=== PATIENT | female | born 1955 | race African-American/Black ===

== ENCOUNTER 2017-09-21 18:36 | Emergency (ER) | payer OTHER ==
--- NOTE | 2017-09-21 20:13 | RAD ---
RIGHT FOOT THREE VIEWS: History: Right foot injury. FINDINGS: Lisfranc joint alignment is anatomic. Plantar arch is maintained. Hallux valgus with bunion deformity is evident. No acute fracture, dislocation, or aggressive osseous erosions. Scattered osteoarthritic changes are present. Soft tissue swelling is apparent about the forefoot. IMPRESSION: 1. Soft tissue swelling. 2. Mild osteoarthritic changes. POS: [facility]
[2017-09-21] MEDS ORDERED: Ketorolac Tromethamine 30 MG/ML VIAL ONE (21:21)
== END 2017-09-21 21:35 | disposition home or self-care (01) ==
LOC: ERS 18:36
DX: S90.31XA Contusion of right foot, initial encounter (principal); I25.10 Atherosclerotic heart disease of native coronary artery without angina pectoris; I25.2 Old myocardial infarction; E11.9 Type 2 diabetes mellitus without complications; I10 Essential (primary) hypertension; G43.909 Migraine, unspecified, not intractable, without status migrainosus; F17.210 Nicotine dependence, cigarettes, uncomplicated; Z79.4 Long term (current) use of insulin; W20.8XXA Other cause of strike by thrown, projected or falling object, initial encounter
CPT/HCPCS: 96372; J1885

== ENCOUNTER 2018-03-21 09:12 | Observation (INO) | payer OTHER ==
[2018-03-21] MEDS ORDERED: Nitroglycerin 0.4 MG TAB (25 Tab Bottle) ONE (09:48)
[2018-03-21] MEDS ORDERED: Nitroglycerin 2% Ointment 1 INCH/1 GM Packet ONE (09:55)
[2018-03-21 10:14] LABS: #Basophils 0.1 thou/uL (0.0-0.2); #Eosinphils 0.3 thou/uL (0.0-0.7); #Lymphocytes 3.7 thou/uL (1.20-3.40); #Monocytes 0.4 thou/uL (0.11-0.59); #Neutrophils 4.3 thou/uL (1.40-6.50); %Basophils 1.5 % (0.0-1.0); %Eosinophils 3.4 % (0.0-10.0); %Lymphocytes 42.2 % (21.0-51.0); %Neutrophils 48.9 % (42.0-75.0); Mean Corpuscular HGB CONC 34.2 g/dL (32.0-36.0); Mean Corpuscular Hemoglobin 30.5 pg (27.0-31.0); Mean Corpuscular Volume 89.2 fL (78.0-98.0); Mean Platelet Volume 7.9 fL (7.4-10.4); Platelet Count 242 thou/uL (130-400); RBC Distribution Width 14.6 % (11.5-14.5); Red Blood Cell (RBC) Count 4.58 mill/uL (4.20-5.40); White Blood Cell (WBC) Count 8.7 thou/uL (4.8-10.8)
--- NOTE | 2018-03-21 10:14 | RAD ---
PORTABLE CHEST: HISTORY: Chest pain. FINDINGS: Comparison exam from 2014. Lung friedman are clear. Vascular markings normal. Heart and mediastinum unremarkable. IMPRESSION: Unremarkable chest. POS: [facility]
[2018-03-21 10:40] LABS: ALT (SGPT) 13 U/L (8-55); AST (SGOT) 16 U/L (5-34); Albumin 3.8 g/dL (3.4-4.8); Alkaline Phosphatase 132 U/L (40-150); Anion Gap 10 mmol/L (10-20); BUN (Urea Nitrogen) 8 mg/dL (9.8-20.1); Bilirubin, Total 0.4 mg/dL (0.2-1.2); Calc. Creatinine Clearance 0 mL/min (70-130); Calcium 9.2 mg/dL (7.8-10.44); Carbon Dioxide 27 mmol/L (23-31); Chloride 107 mmol/L (98-107); Estimated GFR-MDRD Greater than 90; Globulin 3.3 g/dL (2.4-3.5); Glucose 68 mg/dL (80-115); Potassium 3.2 mmol/L (3.5-5.1); Protein, Total 7.1 g/dL (6.0-8.3); Sodium 141 mmol/L (136-145)
[2018-03-21 10:44] LABS: CKMB 3.1 ng/mL (0-6.6); Troponin I Less than 0.010 ng/mL (< 0.028)
[2018-03-21] MEDS ORDERED: Potassium Chloride 20 MEQ TAB ONE ×2 (11:16→11:17)
[2018-03-21 13:32] LABS: Troponin I Less than 0.010 ng/mL (< 0.028)
[2018-03-21 13:35] VITALS: BMI 22.4
[2018-03-21] MEDS ORDERED: Ondansetron ODT 4 MG TAB SL PRN (13:42)
[2018-03-21] MEDS ORDERED: Ondansetron HCl/PF 4 MG/2 ML Vial IVP PRN (13:42)
[2018-03-21] MEDS ORDERED: Acetaminophen 325 MG TAB PO PRN (13:42)
[2018-03-21] MEDS ORDERED: Dextrose 5% in Water 1,000 ML IV PRN (14:33)
[2018-03-21] MEDS ORDERED: Dextrose 50% Abboject 50 ML SYRINGE SLOW IVP PRN (14:33)
[2018-03-21] MEDS ORDERED: HumaLOG 300 UNITS/3 ML VIAL SC PRN (14:33)
[2018-03-21] MEDS: metFORMIN 500 MG TAB PO SCH (16:55)
[2018-03-21 17:42] LABS: Troponin I Less than 0.010 ng/mL (< 0.028)
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
[2018-03-21 19:50] LABS: Troponin I Less than 0.010 ng/mL (< 0.028)
[2018-03-21] MEDS ORDERED: Pregabalin 50 MG CAP PO SCH (21:00)
[2018-03-22 05:06] LABS: Anion Gap 11 mmol/L (10-20); BUN (Urea Nitrogen) 8 mg/dL (9.8-20.1); Calc. Creatinine Clearance 92 mL/min (70-130); Calcium 9.1 mg/dL (7.8-10.44); Carbon Dioxide 25 mmol/L (23-31); Chloride 108 mmol/L (98-107); Estimated GFR-MDRD Greater than 90; Glucose 231 mg/dL (80-115); Potassium 3.7 mmol/L (3.5-5.1); Sodium 140 mmol/L (136-145)
[2018-03-22] MEDS ORDERED: Regadenoson 0.4 MG/5 ML SYRINGE ONE (08:39)
[2018-03-22] MEDS ORDERED: Iopamidol 370 76% 100 ML VIAL ONE (08:43)
[2018-03-22] MEDS ORDERED: Aspirin 325 MG TAB PO SCH (09:00)
[2018-03-22] MEDS: Acetaminophen 325 MG TAB PO PRN ×2 (09:25→17:24)
[2018-03-22] MEDS: metFORMIN 500 MG TAB PO SCH ×2 (13:52→16:27)
[2018-03-22] MEDS ORDERED: Heparin 1000 UNIT/NS 500ML(OR) 1,000 ML ONE (14:27)
[2018-03-22] MEDS ORDERED: Sodium Chloride 0.9% 1,000 ML IV SCH ×2 (14:30→18:15)
[2018-03-22] MEDS ORDERED: Communication Order-Pharmacy FS SCH (14:30)
--- NOTE | 2018-03-22 14:31 | NM ---
MYOCARDIAL PERFUSION STUDY: Date: 03/22/18 HISTORY: Chest pain. History of coronary artery disease. History of prior coronary artery stent placement. RADIOPHARMACEUTICALS: 32.8 mCi technetium-99m sestamibi, IV at stress. 27 mCi technetium-99m sestamibi, IV at rest. MEDICATIONS: 0.4 mg of Lexiscan, IV. COMPARISON: 12/16/13. FINDINGS: There is a small area of mildly diminished uptake of radiotracer seen involving the distal anterolate ral right ventricular wall on both the resting and stress acquisitions. No reversible defect is seen to suggest ischemia. Gated images demonstrate normal ventricular wall motion and wall thickening. The calculated left ventricular ejection fraction is 77%. LVEF on prior exam of 2013 was 74%. Transient ischemic dilatation ratio is 1.28, which is elevated with normal being 1.22 or less. IMPRESSION: 1. Normal myocardial perfusion study without evidence of a reversible defect seen to suggest ischemi a. There is a small mildly fixed defect within the anteroseptal distal left ventricular wall with nor mal wall thickening and motion, and this is probably attributable to soft tissue attenuation. 2. Normal LV function with normal LVEF of 77%. 3. Elevated transient ischemic dilatation ratio of 1.28. POS: [facility]
--- NOTE | 2018-03-22 14:51 | CON ---
DATE OF CONSULTATION: 03/22/2018 REASON FOR CONSULTATION: Chest pain and history of coronary artery disease. HISTORY OF PRESENT ILLNESS: Ms. Lou is a 62-year-old woman, who states she has seeing Dr. Wilson madrid in the past. She underwent stent placement several years ago. She recently presented with ches t pain, lasted 15-20 minutes. Her initial troponin was negative. Her initial EKG did suggest biphas ic T waves. Her stress test showed an increase in TID of 1.28, although her LV volumes were small. Cardiac risk factors, diabetes mellitus, hypertension, hyperlipidemia, tobacco abuse. PAST MEDICAL HISTORY: As above including fibromyalgia and osteoarthritis. PAST SURGICAL HISTORY: Hysterectomy and hernia repair. SOCIAL HISTORY: As above. ALLERGIES: None. HOME MEDICATIONS: Include Lyrica, aspirin, metformin. REVIEW OF SYSTEMS: Ten-point review of systems reviewed and as above, otherwise negative. PHYSICAL EXAMINATION: VITAL SIGNS: Blood pressure is 167/81, pulse 62, temperature 98.3. GENERAL: Patient is a pleasant female, who is in no acute distress. The patient appears her stated age. NEUROLOGIC: The patient is alert and oriented times 3 with no focal neurologic deficits. HEENT: Sclerae without icterus. Mouth has moist mucous membranes with normal pallor. NECK: No JVD. Carotid upstroke brisk. No bruits bilaterally. LUNGS: Clear to auscultation with unlabored respirations. BACK: No scoliosis or kyphosis. CARDIAC: Regular rate and rhythm with normal S1 and S2. No S3 or S4 noted. No significant rubs, mu rmurs, thrills, or gallops noted throughout the precordium. PMI is not displaced. There is no nishi ternal heave. ABDOMEN: Soft, nontender, nondistended. No peritoneal signs present. No hepatosplenomegaly. No ab normal striae. EXTREMITIES: 2+ femoral and 2+ dorsalis pedis pulses. No cyanosis, clubbing, or edema. SKIN: No gross abnormalities. PERTINENT LABORATORY DATA: CK and troponin negative. Creatinine 0.66. EKG: Normal sinus rhythm with biphasic T-waves present. Stress rest myocardial perfusion study with LVEF 74% with small fixed defect in the anterolateral reg ion and elevated TID IMPRESSION: 1. Chest pain. 2. Tobacco abuse. 3. Diabetes mellitus. RECOMMENDATIONS: Ms. Lou' symptoms certainly suggest unstable angina. Her stress study did sugge st a small scar with no ischemia present. I am more concerned about her biphasic T waves and acute o nset symptoms. She also has multiple risk factors for underlying coronary artery disease. Discussed medical therapy versus angiography. I did recommend angiography given her EKG changes that are felt to be new from 2013. Discussed coronary angiography in full detail with Ms. Lou. The risks incl uded but not limited to the following: , stroke, IL, need for emergency surgery, loss of limb, bleeding, and infection, as well as a reaction to the dye causing kidney failure and needing long-ter m dialysis. I also discussed the risks of PCI to include all of the above including coronary dissect ion and perforation in addition to acute stent thrombosis and restenosis. All questions were answere d. Given the above, patient agreed to proceed with above procedure. We will proceed with a drug-coa sheri stent placement if needed.
[2018-03-22] MEDS ORDERED: Midazolam HCl 2 mg/2 ml Vial ONE (15:32)
[2018-03-22] MEDS ORDERED: Fentanyl 100 MCG/2 ML VIAL ONE (15:32)
[2018-03-22] MEDS ORDERED: Nitroglycerin 100MG/250ML BOT 250 ML ONE (15:38)
[2018-03-22] MEDS ORDERED: hydrALAZINE 20 MG/ML VIAL ONE (15:38)
[2018-03-22 16:15] VITALS: BP 162/80; TEMP 98.7
[2018-03-22] MEDS ORDERED: traMADol HCl 50 MG TAB PO PRN (18:10)
[2018-03-22] MEDS ORDERED: Nitroglycerin 0.4 MG TAB (25 Tab Bottle) SL PRN (18:10)
[2018-03-22] MEDS ORDERED: Acetaminophen/Codeine 30-300mg Tablet PO PRN ×2 (18:10)
[2018-03-22] MEDS ORDERED: Sodium Chloride 0.9% 200 ML IV SCH (18:19)
--- NOTE | 2018-03-23 14:09 | DIS ---
DATE OF ADMISSION: 03/21/2018 DATE OF DISCHARGE: 03/22/2018 DISCHARGE DIAGNOSES: 1. Chest pain. 2. Coronary artery disease. 3. Diabetes mellitus. 4. Hypertension. 5. History of fibromyalgia syndrome. 6. Tobacco abuse. HISTORY: The patient is a 62-year-old female who has a history of coronary disease with prior stents , who presented to the Emergency Department with some exertional chest pain while at work. She initi ally had negative enzymes and a nondiagnostic EKG. HOSPITAL COURSE: The patient was placed in the hospital on telemetry, where she received serial card iac isoenzymes and EKGs. She underwent a stress test, which showed no reversible ischemia, but poten tially scarring. She was seen in consultation by Cardiology who was concerned about the dynamic natu re of her T waves and the abrupt onset of her symptoms and therefore, the patient was taken for heart catheterization. The patient was found to have a patent stent in the RCA and otherwise a small vess el disease and medical management was recommended. PHYSICAL EXAMINATION: On the day of discharge, VITAL SIGNS: Temperature 98.7, pulse 67, respirations 18, O2 saturation 98% on room air, BP ranged f rom 135/75 to 162/80. GENERAL: The patient was awake, alert, in no distress. HEART: Regular rate and rhythm without murmurs. LUNGS: Clear bilaterally. ABDOMEN: Soft, nontender, nondistended. EXTREMITIES: Warm and dry. DISPOSITION: The patient is discharged to home. She will be on atorvastatin 40 mg every day. She w ill continue with metformin, pregabalin, aspirin. Her activity level is as tolerated. She will [place] in on a heart healthy diet. She should follow up with Dr. Uriah Trinidad and Dr. Arciniega. The patie nt should return to the emergency department should she have any problems prior to her followup.
--- NOTE | 2018-03-24 13:46 | EKG ---
Test Reason : CHEST PAIN Blood Pressure : / mmHG Vent. Rate : 070 BPM Atrial Rate : 070 BPM P-R Int : 124 ms QRS Dur : 100 ms QT Int : 410 ms P-R-T Axes : 067 057 087 degrees QTc Int : 442 ms Normal sinus rhythm Minimal voltage criteria for LVH, may be normal variant Nonspecific T wave abnormality Abnormal ECG Confirmed by REGAN MORGAN, MELINA ([id number]), editorial intern GABBY ROBLES ([id number]) on 03/24/2018 1:45:32 PM Referred By: Confirmed By:MELINA SPEARS MD
--- NOTE | 2018-03-25 12:40 | STRESS ---
Acquisition Time: 2018-03-22 11:16:17 Total Exercise Time: 00:01:00 Test Indications: CHEST PAIN Medications: Protocol: LEXISCAN Max HR: 121 BPM 76% of Pred: 159 BPM Max BP: 168/080 mmHG Max Work Load: 1.0 METS RESTING ECG: NORMAL SINUS RHYTHM AT 60 BPM WITH LEFT VENTRICULAR HYPERTROPHY SYMPTOMS: NONE NORMAL BP RESPONSE ECTOPY: RARE PAC ECG STRESS: NO SIGNIFICANT CHANGES INTERPRETATION: NEGATIVE ECG/AWAIT NUCLEAR IMAGES FOR DEFINITIVE DIAGNOSIS Confirmed by AMY MOY ELLEN ([id number]) on 03/25/2018 12:40:07 PM Referred By: MD Clint MCKNIGHT Confirmed By:ABBY MOY PA-C
== END 2018-03-22 18:58 | disposition home or self-care (01) ==
LOC: ERS 09:12 → 2SW 13:19
PROVIDERS: ADMIT Internal Medicine; ATTEND Internal Medicine
PROC: 4A023N7 Measurement of Cardiac Sampling and Pressure, Left Heart, Percutaneous Approach (ICD-10-PCS; principal; 2018-03-22)
PROC: B2111ZZ Fluoroscopy of Multiple Coronary Arteries using Low Osmolar Contrast (ICD-10-PCS; 2018-03-22)
DX: R07.89 Other chest pain (principal); I25.10 Atherosclerotic heart disease of native coronary artery without angina pectoris; I10 Essential (primary) hypertension; E11.9 Type 2 diabetes mellitus without complications; I25.2 Old myocardial infarction; F17.210 Nicotine dependence, cigarettes, uncomplicated; E78.5 Hyperlipidemia, unspecified; M79.7 Fibromyalgia; M19.90 Unspecified osteoarthritis, unspecified site; Z86.73 Personal history of transient ischemic attack (TIA), and cerebral infarction without residual deficits; Z79.82 Long term (current) use of aspirin; Z79.84 Long term (current) use of oral hypoglycemic drugs; Z79.899 Other long term (current) drug therapy; Z95.5 Presence of coronary angioplasty implant and graft
CPT/HCPCS: 36415; 36416; 71045; 76942; 78452; 80048; 80053; 82553; 84484; 85025; 93005; 93017; 93458; 99152; A4216; A9500; C1760; C1769; G0378; J0360; J1644; J2250; J2785; J3010; J7050

== ENCOUNTER 2018-11-04 20:33 | Emergency (ER) | payer OTHER, SELFPAY ==
[2018-11-04 22:42] LABS: #Basophils 0.2 thou/uL (0.0-0.2); #Eosinphils 0.3 thou/uL (0.0-0.7); #Lymphocytes 4.8 thou/uL (1.20-3.40); #Monocytes 0.6 thou/uL (0.11-0.59); #Neutrophils 5.5 thou/uL (1.40-6.50); %Basophils 1.6 % (0.0-1.0); %Lymphocytes 42.1 % (21.0-51.0); %Monocytes 5.1 % (0.0-10.0); %Neutrophils 48.1 % (42.0-75.0); Hemoglobin 15.3 g/dL (12.0-16.0); Mean Corpuscular HGB CONC 33.2 g/dL (32.0-36.0); Mean Corpuscular Hemoglobin 29.3 pg (27.0-31.0); Mean Corpuscular Volume 88.2 fL (78.0-98.0); Mean Platelet Volume 8.1 fL (7.4-10.4); Platelet Count 296 thou/uL (130-400); RBC Distribution Width 13.9 % (11.5-14.5); Red Blood Cell (RBC) Count 5.23 mill/uL (4.20-5.40); White Blood Cell (WBC) Count 11.3 thou/uL (4.8-10.8)
[2018-11-04 22:58] LABS: ALT (SGPT) Less than 7 U/L (8-55); AST (SGOT) 10 U/L (5-34); Alkaline Phosphatase 140 U/L (40-150); Anion Gap 14 mmol/L (10-20); BUN (Urea Nitrogen) 9 mg/dL (9.8-20.1); Bilirubin, Total 0.2 mg/dL (0.2-1.2); Calc. Creatinine Clearance 0 mL/min (70-130); Calcium 9.8 mg/dL (7.8-10.44); Carbon Dioxide 25 mmol/L (23-31); Chloride 102 mmol/L (98-107); Estimated GFR-MDRD Greater than 90; Globulin 3.8 g/dL (2.4-3.5); Glucose 148 mg/dL (80-115); Potassium 3.7 mmol/L (3.5-5.1); Protein, Total 7.8 g/dL (6.0-8.3); Sodium 137 mmol/L (136-145)
== END 2018-11-04 23:19 | disposition home or self-care (01) ==
LOC: ERS 20:33
DX: L73.2 Hidradenitis suppurativa (principal); E11.40 Type 2 diabetes mellitus with diabetic neuropathy, unspecified; E11.65 Type 2 diabetes mellitus with hyperglycemia; I25.10 Atherosclerotic heart disease of native coronary artery without angina pectoris; I25.2 Old myocardial infarction; I10 Essential (primary) hypertension; M79.7 Fibromyalgia; F32.9 Major depressive disorder, single episode, unspecified; F41.9 Anxiety disorder, unspecified; F17.210 Nicotine dependence, cigarettes, uncomplicated; Z79.82 Long term (current) use of aspirin; Z79.84 Long term (current) use of oral hypoglycemic drugs; Z79.899 Other long term (current) drug therapy
CPT/HCPCS: 36415; 36416; 80053; 85025; 87804; 99283

== ENCOUNTER 2019-03-26 01:47 | Inpatient (IN) | payer OTHER ==
[2019-03-26] MEDS ORDERED: Amiodarone 150 MG/3 ML VIAL ONE (01:57)
[2019-03-26 02:39] LABS: PTT 31.6 SEC (22.9-36.1); Prothrombin Time 12.8 SEC (12.0-14.7)
[2019-03-26 02:45] LABS: Hemoglobin 15.6 g/dL (12.0-16.0); Mean Corpuscular HGB CONC 34.4 g/dL (32.0-36.0); Mean Corpuscular Hemoglobin 32.2 pg (27.0-31.0); Mean Corpuscular Volume 93.6 fL (78.0-98.0); Mean Platelet Volume 7.8 fL (7.4-10.4); Platelet Count 324 thou/uL (130-400); RBC Distribution Width 14.7 % (11.5-14.5); Red Blood Cell (RBC) Count 4.85 mill/uL (4.20-5.40); White Blood Cell (WBC) Count 11.2 thou/uL (4.8-10.8)
[2019-03-26 02:47] LABS: ALT (SGPT) Less than 7 U/L (8-55); AST (SGOT) 12 U/L (5-34); Albumin 3.8 g/dL (3.4-4.8); Alkaline Phosphatase 107 U/L (40-150); Anion Gap 17 mmol/L (10-20); BUN (Urea Nitrogen) 8 mg/dL (9.8-20.1); Bilirubin, Total 0.3 mg/dL (0.2-1.2); Calc. Creatinine Clearance 0 mL/min (70-130); Calcium 10.1 mg/dL (7.8-10.44); Carbon Dioxide 25 mmol/L (23-31); Chloride 102 mmol/L (98-107); Estimated GFR-MDRD Greater than 90; Globulin 3.3 g/dL (2.4-3.5); Glucose 220 mg/dL (80-115); Magnesium 1.3 mg/dL (1.6-2.6); Potassium 3.3 mmol/L (3.5-5.1); Protein, Total 7.1 g/dL (6.0-8.3); Sodium 141 mmol/L (136-145)
[2019-03-26 03:02] LABS: Eosinophils 5 % (0-10); Lymphocytes 28 % (21-51); MDiff Complete? YES; Monocytes 4 % (0-10); Neutrophil 60 % (42-75); Reactive Lymphocytes 3 % (0-10)
[2019-03-26] MEDS ORDERED: HYDROcodone/Acetaminophen 5/325 mg Tablet ONE ×2 (04:52→11:15)
[2019-03-26 05:49] LABS: Troponin I 0.319 ng/mL (< 0.028)
[2019-03-26] MEDS ORDERED: Zolpidem Tartrate 5 MG TAB PO PRN (07:32)
[2019-03-26] MEDS ORDERED: Artificial Tears 18 DROP/0.9 ML EA EYE PRN (07:32)
[2019-03-26] MEDS ORDERED: Sodium Chloride 0.65% Nasal 44 ML BOT EA NARE PRN (07:32)
[2019-03-26] MEDS ORDERED: Calcium Carbonate 500 MG ChewTAB PO PRN (07:32)
[2019-03-26] MEDS ORDERED: Loperamide HCl 2 MG CAP PO PRN (07:32)
[2019-03-26] MEDS ORDERED: Loratadine 10 MG TAB PO PRN (07:32)
[2019-03-26] MEDS ORDERED: Cepastat Lozenges 1 LOZ PO PRN (07:32)
[2019-03-26] MEDS ORDERED: Acetaminophen 325 MG TAB PO PRN (07:32)
[2019-03-26] MEDS ORDERED: Nitroglycerin 0.4 MG TAB (25 Tab Bottle) SL PRN (07:32)
[2019-03-26] MEDS ORDERED: Senokot S 8.6-50 MG TAB PO PRN (07:32)
[2019-03-26] MEDS ORDERED: Bisacodyl 10 MG SUPP PR PRN (07:32)
[2019-03-26] MEDS ORDERED: Dextrose 50% Abboject 50 ML SYRINGE SLOW IVP PRN (07:32)
[2019-03-26] MEDS ORDERED: Dextrose 5% in Water 1,000 ML IV PRN (07:32)
[2019-03-26] MEDS ORDERED: Diabetic Tussin 200 MG/10 ML UDCUP PO PRN (07:32)
[2019-03-26] MEDS ORDERED: Famotidine 20 MG TAB ONE (08:15)
[2019-03-26] MEDS ORDERED: Potassium Chloride 20 MEQ TAB PO SCH (08:15)
[2019-03-26] MEDS ORDERED: Potassium Chloride 20 MEQ TAB ONE (08:15)
[2019-03-26] MEDS ORDERED: Aspirin 325 MG TAB ONE (08:15)
[2019-03-26] MEDS ORDERED: Enoxaparin Sodium 60 MG/0.6 ML SYRINGE ONE (08:15)
[2019-03-26] MEDS ORDERED: Magnesium Sulfate 3 GM in Sodium Chloride 0.9% 100 ML IVPB SCH (08:15)
[2019-03-26] MEDS ORDERED: Aspirin 325 MG TAB PO SCH (09:00)
[2019-03-26] MEDS ORDERED: Aspirin Chewable 81 MG TAB PO SCH (09:00)
--- NOTE | 2019-03-26 09:02 | HP ---
PRIMARY CARE PHYSICIAN: Sal Stallworth, [facility]; Dr. Saleem. REASON FOR ADMISSION: Chest pain, atrial fibrillation with rapid ventricular response, non-ST elevation. HISTORY OF PRESENT ILLNESS: A 63-year-old female, who has underlying history of hypertension, diabetes type 2, dyslipidemia, coronary artery disease as well as peripheral vascular disease and ongoing tobacco abuse disorder, who was brought to emergency room for chest pain. The patient was resting at her home watching TV, and suddenly, she experienced left-sided chest pain, which was about 7 to 8/10 in intensity, associated with nausea, vomiting, and diaphoresis. Per the patient, it was exactly same pain when she required cardiac catheterization and stent placement. She also felt shortness of breath. The patient called Paramedics, and she was brought to emergency room. The patient was found with atrial fibrillation with rapid ventricular response. The patient was given aspirin by Paramedics. The patient took aspirin at her home as well. In the emergency room, she was given medication with Ponce, IV fluid, and amiodarone. Subsequently, her pain subsided during nighttime. Her initial troponin was indeterminate range, and subsequently, second troponin was significantly abnormal. She also has underlying hypokalemia and hypomagnesemia. The patient has chronic vascular insufficiency in both lower extremity. The patient required balloon angioplasty on left lower extremity, and she has chronic throbbing pain in her left great toe. The patient has been planned for outpatient surgery when her diabetes is well controlled. The patient also has vascular insufficiency in the right lower extremity, but no investigation done. Apparently, when I saw this patient at that time, she is chest pain-free. She does not have any orthopnea, PND, or leg swelling. She does have left great toe throbbing pain. The patient reports that she cut down smoking to half pack lasting for 1 week. The patient had cardiac catheterization in 2018, which showed severe small vessel disease and required medical therapy. REVIEW OF SYSTEMS: CONSTITUTIONAL: Negative for weight loss or gain, ability to conduct usual activities. SKIN: Negative for rash, itching. EYES: Negative for double vision, pain. ENT/MOUTH: Negative for nose bleeding, neck stiffness, pain, tenderness. CARDIOVASCULAR: Negative for palpitations, dyspnea on exertion, orthopnea. RESPIRATORY: Negative for shortness of breath, wheezing, cough, hemoptysis, fever or night sweats. GASTROINTESTINAL: Negative for poor appetite, abdominal pain, heartburn, nausea, vomiting, constipation, or diarrhea. GENITOURINARY: Negative for urgency, frequency, dysuria, nocturia. MUSCULOSKELETAL: Negative for pain, swelling. NEUROLOGIC/PSYCHIATRIC: Negative for anxiety, depression. ALLERGY/IMMUNOLOGIC: Negative for skin rash, bleeding tendency. Please see my HPI for pertinent positive and negative. All other review of systems reviewed and negative, except as mentioned in the HPI. PAST MEDICAL HISTORY: Severe small vessel coronary artery disease on medical therapy as well as history of right coronary artery stent, diabetes type 2, hypertension, tobacco abuse disorder, dyslipidemia, peripheral vascular disease, fibromyalgia, osteoarthritis. PAST SURGICAL HISTORY: Hysterectomy, ventral hernia repair, cardiac catheterization with stent placement by Dr. Mccray. PAST PSYCHIATRIC HISTORY: Reviewed and negative. SOCIAL HISTORY: The patient is currently living with her granddaughter. She smokes about half pack lasting for about one week. She is continuously decreasing her smoking. She has minimal alcohol consumption. She only occasionally abuses marijuana. ALLERGIES: NO KNOWN DRUG ALLERGY. CURRENT HOME MEDICATIONS: 1. Aspirin 325 mg p.o. daily. 2. Plavix 75 mg daily. 3. Metformin 500 mg p.o. b.i.d. 4. Lyrica 50 mg p.o. at bedtime. 5. Lipitor 40 mg p.o. at bedtime. 6. The patient did not have any medication with her and that is why we are not able to verify her medication list. PAST PSYCHIATRIC HISTORY: Reviewed and negative. FAMILY HISTORY: Positive for diabetes, hypertension, heart disease among several family members. EMERGENCY ROOM COURSE: The patient is given Ponce, IV fluid, and amiodarone drip. PHYSICAL EXAMINATION: VITAL SIGNS: Most recently, blood pressure 150/77; pulse 71, now regular, converted to sinus rhythm; temperature 98.6; saturation 99% on room air; weight 60 kg. GENERAL: The patient is currently alert and oriented. No obvious acute distress. HEENT: Head; normocephalic, atraumatic. Eyes; pupils round, reactive to light. Extraocular muscles intact. ENT; oropharynx within normal limits. Moist mucous membranes. No oral lesion. No pharyngeal erythema. No exudate. NECK: Supple. No JVD. No thyromegaly. No carotid bruit. No jugular venous distention. LUNGS: Clear to auscultation without any rhonchi or rales. CARDIAC: S1 and S2, currently regular. No murmur. No gallop. No rub. ABDOMEN: Soft. Bowel sounds present. Nontender. Nondistended. No organomegaly. No mass. No suprapubic tenderness. BACK: Unremarkable. EXTREMITIES: Upper extremities, passive movement of all joints are normal. Lower extremity, no edema. Muscle wasting noted. The patient does have evidence of peripheral vascular disease with left great toe is discolored. Distal pulsations are feeble. NEUROLOGIC: Grossly nonfocal examination. The patient has subjective feeling of swaying to left side over the last 3 days. IMAGING STUDIES: EKG showing atrial fibrillation with rapid ventricular response. Subsequently, monitor is showing sinus rhythm. Chest x-ray, based on my review, no acute cardiopulmonary process. LABORATORY DATA: CBC; WBC 11.2, hemoglobin 15.6, platelet 324. INR 1.0. BMP; sodium 141, potassium 3.3, chloride 102, carbon dioxide 25, anion gap 17, BUN 8, creatinine 0.76, glucose 220, calcium 10.1, magnesium 1.3. LFT; AST 12, ALT less than 7, alkaline phosphatase 107, albumin 3.8. TSH 1.77. Troponin I 0.011 and then 0.319. ASSESSMENT AND PLAN: 1. Chest pain. The patient's chest pain description is anginal, most likely related with her episode of atrial fibrillation with rapid ventricular response. The patient already has severe small vessel disease. She had cardiac catheterization done in 2018, at that time, medical therapy was recommended. Currently, the patient is on aspirin and Plavix. We will also continue Lipitor 40 mg p.o. at bedtime. Cardiology will be consulted for opinion. Healthy lifestyle measure discussed with the patient regarding avoiding smoking. Currently, troponin is significantly elevated and that is consistent with non-ST elevation ND, probably type 2 from atrial fibrillation with rapid ventricular response. Elevated troponin could be from her coronary arterial disease. 2. Non-ST elevation myocardial infarction. It is unclear whether it is considered as a type 2 or non-ST elevation myocardial infarction from her underlying coronary artery disease. We will defer that decision to Cardiology. The patient is already on medical therapy with aspirin, Plavix, and statin therapy. 3. New-onset atrial fibrillation with rapid ventricular response converted to sinus rhythm after amiodarone drip. We will defer amiodarone drip to discontinue to Cardiology. The patient may benefit from beta-shannon therapy, but the patient has underlying peripheral vascular disease. The patient has diabetes she has a CHADS2 score and see is at high risk for stroke with her smoking history. We will start Lovenox 1 mg/kg and long-term anticoagulation will defer to Cardiology. We will obtain echocardiography to assess EF and other structural abnormality. Meanwhile, we will continue with aspirin, Plavix, and Lovenox. 4. Hypokalemia. We will replace, potassium chloride 40 mEq p.o. one time dose. 5. Hypomagnesemia. We will replace, magnesium sulfate 3 g IV one time dose, and repeat labs tomorrow. 6. Tobacco abuse disorder. Smoking cessation counseling given. Healthy lifestyle measure discussed with the patient. 7. Peripheral vascular disease with vascular insufficiency, more on the left side. Smoking cessation counseling given. Medical therapy advised. 8. Deep venous thrombosis prophylaxis. The patient is already on full dose of Lovenox therapy. 9. GI prophylaxis. Pepcid 20 mg p.o. b.i.d. 10. Code status, the patient is full code. The patient's granddaughter is the surrogate decision maker. 11. Diabetes type 2. We will continue with insulin as per sliding scale per protocol. We will check hemoglobin A1c tomorrow, and we will continue glyburide 5 mg p.o. daily. 12. Diabetic neuropathy. We will continue gabapentin 300 mg three times daily. Plan of care discussed with the patient in detail. Job ID: [id number]
[2019-03-26 09:05] LABS: Troponin I 1.608 ng/mL (< 0.028)
[2019-03-26] MEDS: Gabapentin 300 MG CAP PO SCH ×3 (09:27→20:17)
[2019-03-26] MEDS: Famotidine 20 MG TAB PO SCH ×2 (09:27→20:16)
--- NOTE | 2019-03-26 09:45 | RAD ---
FRONTAL RADIOGRAPH OF CHEST: Date: 03/26/19 COMPARISON: 03/21/18. HISTORY: Tachycardia and shortness of breath. FINDINGS: Heart and mediastinal contours are stable. Mild pulmonary hyperinflation. No pneumothorax or pleural fluid. No focal consolidation or alveolar edema. IMPRESSION: No acute findings. POS: [facility]
[2019-03-26] MEDS ORDERED: Clopidogrel Bisulfate 75 MG TAB ONE (11:02)
[2019-03-26] MEDS: Enoxaparin Sodium 60 MG/0.6 ML SYRINGE SC SCH ×2 (11:11→20:17)
[2019-03-26] MEDS: Clopidogrel Bisulfate 75 MG TAB PO SCH (11:11)
[2019-03-26] MEDS: HYDROcodone/Acetaminophen 5/325 mg Tablet PO PRN ×2 (11:17→16:32)
[2019-03-26] MEDS ORDERED: Ketorolac Tromethamine 30 MG/ML VIAL ONE (12:58)
[2019-03-26] MEDS: Labetalol HCl 100 MG/20 ML VIAL SLOW IVP PRN (17:19)
[2019-03-26] MEDS: Amiodarone 450 MG, Admixture Fee 1 EACH in Dextrose 5% in Water 250 ML IVPB SCH (19:02)
[2019-03-26] MEDS: Cephalexin 250 MG CAP PO SCH (20:15)
[2019-03-26] MEDS: Morphine 4 MG/ML VIAL SLOW IVP PRN (20:16)
[2019-03-26] MEDS: Atorvastatin Calcium 40 MG TAB PO SCH (20:17)
[2019-03-26] MEDS ORDERED: Pregabalin 50 MG CAP PO SCH (21:00)
[2019-03-27] MEDS: Morphine 4 MG/ML VIAL SLOW IVP PRN ×5 (00:04→22:23)
[2019-03-27 02:51] LABS: Bilirubin Negative (Negative); Blood, Urine Negative (Negative); Clarity Clear (Clear); Glucose, Urine (Dipstick) 500 mg/dL (Negative); Leukocyte Negative Leu/uL (Negative); Nitrite Negative (Negative); Protein, Urine (Dipstick) Negative (Neg-Trace); RBC/HPF 0-3 HPF (0-3); Urobilinogen Normal mg/dL (Less than 2); WBC/HPF 0-3 HPF (0-3)
[2019-03-27 02:52] LABS: Bacteria/HPF 1+ HPF (None Seen)
[2019-03-27] MEDS: Amiodarone 450 MG, Admixture Fee 1 EACH in Dextrose 5% in Water 250 ML IVPB SCH (03:11)
[2019-03-27] MEDS: HYDROcodone/Acetaminophen 5/325 mg Tablet PO PRN ×2 (03:21→07:35)
[2019-03-27 05:02] LABS: Hemoglobin A1c 7.5 % (4.0-6.0)
[2019-03-27 05:24] LABS: Anion Gap 11 mmol/L (10-20); BUN (Urea Nitrogen) 6 mg/dL (9.8-20.1); Calc. Creatinine Clearance 74 mL/min (70-130); Calcium 9.6 mg/dL (7.8-10.44); Carbon Dioxide 30 mmol/L (23-31); Chloride 99 mmol/L (98-107); Estimated GFR-MDRD Greater than 90; Glucose 213 mg/dL (80-115); Magnesium 1.5 mg/dL (1.6-2.6); Potassium 3.5 mmol/L (3.5-5.1); Sodium 136 mmol/L (136-145)
[2019-03-27 05:30] LABS: #Basophils 0.1 thou/uL (0.0-0.2); #Eosinphils 0.3 thou/uL (0.0-0.7); #Monocytes 0.5 thou/uL (0.11-0.59); #Neutrophils 4.5 thou/uL (1.40-6.50); %Basophils 0.7 % (0.0-1.0); %Lymphocytes 42.9 % (21.0-51.0); %Monocytes 5.6 % (0.0-10.0); %Neutrophils 47.7 % (42.0-75.0); Hemoglobin 14.7 g/dL (12.0-16.0); Mean Corpuscular HGB CONC 33.2 g/dL (32.0-36.0); Mean Corpuscular Hemoglobin 30.8 pg (27.0-31.0); Mean Corpuscular Volume 92.9 fL (78.0-98.0); Mean Platelet Volume 7.9 fL (7.4-10.4); Platelet Count 310 thou/uL (130-400); RBC Distribution Width 14.7 % (11.5-14.5); Red Blood Cell (RBC) Count 4.79 mill/uL (4.20-5.40); White Blood Cell (WBC) Count 9.4 thou/uL (4.8-10.8)
[2019-03-27] MEDS ORDERED: Magnesium Sulfate 3 GM in Sodium Chloride 0.9% 100 ML IVPB SCH (08:30)
[2019-03-27] MEDS: glyBURIDE 5 MG TAB PO SCH (08:50)
[2019-03-27] MEDS: Aspirin Chewable 81 MG TAB PO SCH (08:51)
[2019-03-27] MEDS: Famotidine 20 MG TAB PO SCH ×2 (08:52→20:55)
[2019-03-27] MEDS: Enoxaparin Sodium 60 MG/0.6 ML SYRINGE SC SCH ×2 (08:52→20:54)
[2019-03-27] MEDS: Cephalexin 250 MG CAP PO SCH ×3 (08:52→20:55)
[2019-03-27] MEDS: Clopidogrel Bisulfate 75 MG TAB PO SCH (08:52)
[2019-03-27] MEDS: Gabapentin 300 MG CAP PO SCH ×3 (08:53→20:55)
--- NOTE | 2019-03-27 10:02 | PDOC.HOSPP ---
- Subjective Encounter Date: 03/27/19 Encounter Time: 08:15 Subjective: Patient seen and examined. No new complaints. No overnight events - Objective Vital Signs & Weight: Vital Signs (12 hours) Temp Pulse Resp BP Pulse Ox 03/27/19 07:41 97.5 F L 58 L 18 173/83 H 98 03/27/19 04:25 98.2 F 57 L 16 167/90 H 97 03/27/19 03:40 97.2 F L 54 L 16 157/77 H 95 03/26/19 23:00 70 169/86 H Weight Weight 127 lb 14.4 oz Result Diagrams: 03/27/19 04:46 03/27/19 04:46 Additional Labs: Accuchecks 03/27/19 03/26/19 03/26/19 06:04 20:40 16:54 POC Glucose 223 H 250 H 178 H 03/26/19 11:42 POC Glucose 141 H Hospitalist ROS - Review of Systems Constitutional: denies: fever, chills, sweats, weakness, malaise, other Eyes: denies: pain, vision change, conjunctivae inflammation, eyelid inflammation, redness, other ENT: denies: ear pain, ear discharge, nose pain, nose discharge, nose congestion , mouth pain, mouth swelling, throat pain, throat swelling, other Respiratory: denies: cough, dry, shortness of breath, hemoptysis, SOB with excertion, pleuritic pain, sputum, wheezing, other Cardiovascular: denies: chest pain, palpitations, orthopnea, paroxysmal noc. dyspnea, edema, light headedness, other Gastrointestinal: denies: nausea, vomitting, abdominal pain, diarrhea, constipation, melena, hematochezia, other Genitourinary: denies: dysuria, frequency, incontinence, hematuria, retention, other Musculoskeletal: reports: other (toe pain) Skin: denies: rash, lesions, basilia, bruising, other - Medication Medications: Active Medications Generic Name Dose Route Start Last Admin Trade Name Freq PRN Reason Stop Dose Admin Hydrocodone Bitart/Acetaminophen 1 tab 03/26/19 07:32 03/27/19 07:35 [place] 5/325 PO 1 tab Q4H PRN Administration Moderate Pain (4-6) Aspirin 81 mg 03/27/19 09:00 03/27/19 08:51 Aspirin Chewable PO 81 mg DAILY ROBERT Administration Atorvastatin Calcium 40 mg 03/26/19 21:00 03/26/19 20:17 Lipitor PO 40 mg HS ROBERT Administration Cephalexin 500 mg 03/26/19 21:00 03/27/19 08:52 Keflex PO 500 mg TID ROBERT Administration Clopidogrel Bisulfate 75 mg 03/26/19 09:00 03/27/19 08:52 Plavix PO 75 mg DAILY ROBERT Administration Enoxaparin Sodium 60 mg 03/26/19 09:00 03/27/19 08:52 Lovenox SC 60 mg 0900,2099 ROBERT Administration Famotidine 20 mg 03/26/19 09:00 03/27/19 08:52 Pepcid PO 20 mg BID ROBERT Administration Gabapentin 300 mg 03/26/19 09:00 03/27/19 08:53 Neurontin PO 300 mg TID ROBERT Administration Glyburide 5 mg 03/27/19 08:00 03/27/19 08:50 Diabeta PO 5 mg QAM-WM ROBERT Administration Amiodarone HCl 450 mg/ 259 mls @ 0 mls/hr 03/26/19 02:15 03/27/19 03:11 Miscellaneous Medication 1 IVPB 259 mls each/ Dextrose/Water INF ROBERT Administration Protocol As Directed Magnesium Sulfate 3 gm/ Sodium 106 mls @ 100 mls/hr 03/27/19 08:30 03/27/19 10:00 Chloride IVPB 03/27/19 10:30 106 mls NOW ROBERT Administration Labetalol HCl 20 mg 03/26/19 07:32 03/26/19 17:19 Normodyne SLOW IVP 20 mg Q4H PRN Administration SBP > 180 and HR >/= 70 Morphine Sulfate 4 mg 03/26/19 18:02 03/27/19 09:58 Morphine SLOW IVP 4 mg Q4H PRN Administration Pain Zolpidem Tartrate 5 mg 03/26/19 07:32 03/26/19 20:15 Ambien PO 5 mg HSPRN PRN Administration Insomnia - Exam General Appearance: NAD, awake alert Eye: PERRL, anicteric sclera ENT: normocephalic atraumatic, no oropharyngeal lesions Neck: supple, symmetric, no JVD Heart: RRR, no murmur, no gallops, no rubs, diminshed peripheral pulses Respiratory: CTAB, no wheezes, no rales, no ronchi Gastrointestinal: soft, non-tender, non-distended, normal bowel sounds, no palpable masses, no hepatomegaly Extremities: no cyanosis, no clubbing, no edema Skin: normal turgor, no lesions, no rashes Neurological: CN's grossly intact, normal sensation to touch, no weakness, no focal deficits Musculoskeletal: normal tone, normal strength Psychiatric: normal affect, normal behavior, A&O x 3 Hosp A/P (1) Atrial fibrillation Code(s): I48.91 - UNSPECIFIED ATRIAL FIBRILLATION Status: Resolved (2) Hypokalemia Code(s): E87.6 - HYPOKALEMIA Status: Resolved (3) Hypomagnesemia Code(s): E83.42 - HYPOMAGNESEMIA Status: Acute (4) NSTEMI (non-ST elevated myocardial infarction) Code(s): I21.4 - NON-ST ELEVATION (NSTEMI) MYOCARDIAL INFARCTION Status: Acute (5) CAD (coronary artery disease) Code(s): I25.10 - ATHSCL HEART DISEASE OF [place] CORONARY ARTERY W/O ANG PCTRS Status: Chronic (6) Diabetes type 2, controlled Code(s): E11.9 - TYPE 2 DIABETES MELLITUS WITHOUT COMPLICATIONS Status: Chronic (7) Dyslipidemia Code(s): E78.5 - HYPERLIPIDEMIA, UNSPECIFIED Status: Chronic (8) Hypertension Code(s): I10 - ESSENTIAL (PRIMARY) HYPERTENSION Status: Chronic (9) PAD (peripheral artery disease) Code(s): I73.9 - PERIPHERAL VASCULAR DISEASE, UNSPECIFIED Status: Chronic (10) Tobacco abuse Code(s): Z72.0 - TOBACCO USE Status: Chronic - Plan old records reviewed/req replace magnesium cardiology consulted echo pending continue current optimum medical therapy medication reviewed as above symptomatic treatment pain control
[2019-03-27] MEDS: HumaLOG 300 UNITS/3 ML VIAL SC PRN (11:22)
[2019-03-27] MEDS: hydrALAZINE 20 MG/ML VIAL SLOW IVP PRN ×2 (12:55→16:17)
[2019-03-27] MEDS: Atorvastatin Calcium 40 MG TAB PO SCH (20:55)
[2019-03-28] MEDS: HYDROcodone/Acetaminophen 5/325 mg Tablet PO PRN ×5 (02:03→20:55)
[2019-03-28] MEDS: Morphine 4 MG/ML VIAL SLOW IVP PRN ×3 (03:29→19:40)
[2019-03-28] MEDS: Enoxaparin Sodium 60 MG/0.6 ML SYRINGE SC SCH ×2 (07:54→20:41)
[2019-03-28] MEDS: glyBURIDE 5 MG TAB PO SCH (07:54)
[2019-03-28] MEDS: Aspirin Chewable 81 MG TAB PO SCH (07:55)
[2019-03-28] MEDS: Famotidine 20 MG TAB PO SCH ×2 (07:55→20:41)
[2019-03-28] MEDS: Gabapentin 300 MG CAP PO SCH ×3 (07:55→20:41)
[2019-03-28] MEDS: Clopidogrel Bisulfate 75 MG TAB PO SCH (07:55)
[2019-03-28] MEDS: Cephalexin 250 MG CAP PO SCH ×3 (09:07→20:40)
[2019-03-28] MEDS: hydrALAZINE 20 MG/ML VIAL SLOW IVP PRN ×3 (09:14→20:43)
--- NOTE | 2019-03-28 17:31 | PDOC.HOSPP ---
- Subjective Encounter Date: 03/28/19 Subjective: She mentioned that she is weak on her left side, this occurred 4 days ago but she never reported it to us. She has been complaining of pain of her left toe, this has been ongoing for the past 3 month and was supposed to undergo surgery but this was delayed by the current events. - Objective Vital Signs & Weight: Vital Signs (12 hours) Temp Pulse Resp BP BP Pulse Ox 03/28/19 15:10 98.1 F 103 H 18 149/70 H 97 03/28/19 12:15 107 H 161/78 H 03/28/19 11:49 98 03/28/19 11:25 98.3 F 112 H 18 195/99 H 98 03/28/19 10:00 88 156/88 H 03/28/19 09:09 67 180/86 H 03/28/19 07:45 98.2 F 79 18 188/93 H 98 Weight Weight 127 lb 14.4 oz Result Diagrams: 03/27/19 04:46 03/27/19 04:46 Additional Labs: Accuchecks 03/28/19 03/28/19 03/28/19 17:05 10:54 05:24 POC Glucose 167 H 175 H 177 H 03/27/19 20:20 POC Glucose 185 H Hospitalist ROS - Medication Medications: Active Medications Generic Name Dose Route Start Last Admin Trade Name Freq PRN Reason Stop Dose Admin Aspirin 81 mg 03/27/19 09:00 03/28/19 07:55 Aspirin Chewable PO 81 mg DAILY ROBERT Administration Atorvastatin Calcium 40 mg 03/26/19 21:00 03/27/19 20:55 Lipitor PO 40 mg HS ROBERT Administration Cephalexin 500 mg 03/26/19 21:00 03/28/19 16:04 Keflex PO 500 mg TID ROBERT Administration Clopidogrel Bisulfate 75 mg 03/26/19 09:00 03/28/19 07:55 Plavix PO 75 mg DAILY ROBERT Administration Enoxaparin Sodium 60 mg 03/26/19 09:00 03/28/19 07:54 Lovenox SC 60 mg 0900,2100 ROBERT Administration Famotidine 20 mg 03/26/19 09:00 03/28/19 07:55 Pepcid PO 20 mg BID ROBERT Administration Gabapentin 300 mg 03/26/19 09:00 03/28/19 16:05 Neurontin PO 300 mg TID ROBERT Administration Glyburide 5 mg 03/27/19 08:00 03/28/19 07:54 Diabeta PO 5 mg QAM-WM ROBERT Administration Hydralazine HCl 10 mg 03/27/19 12:06 03/28/19 11:49 Apresoline SLOW IVP 10 mg Q2H PRN Administration SBP Greater Than 170 Insulin Human Lispro 0 units 03/26/19 07:32 03/27/19 11:22 Humalog SC 6 units .MODERATE SLIDING SC PRN Administration Moderate Correctional Scale Labetalol HCl 20 mg 03/26/19 07:32 03/26/19 17:19 Normodyne SLOW IVP 20 mg Q4H PRN Administration SBP > 180 and HR >/= 70 Morphine Sulfate 4 mg 03/26/19 18:02 03/28/19 07:47 Morphine SLOW IVP 4 mg Q4H PRN Administration Pain Zolpidem Tartrate 5 mg 03/26/19 07:32 03/26/19 20:15 Ambien PO 5 mg HSPRN PRN Administration Insomnia - Exam General Appearance: NAD, awake alert Eye: PERRL, anicteric sclera ENT: normocephalic atraumatic, no oropharyngeal lesions, moist mucosa Neck: supple, symmetric, no JVD, no thyromegaly, no lymphadenopathy, no carotid bruit Heart: RRR, no murmur, no gallops, no rubs, normal peripheral pulses Respiratory: CTAB, no wheezes, no rales, no ronchi, normal chest expansion, no tachypnea, normal percussion Gastrointestinal: soft Extremeties - other findings: left toe appears necrotic Neurological: hemiplegia (slight weakness on her left side amarilis UE) Psychiatric: normal affect Hosp A/P (1) NSTEMI (non-ST elevated myocardial infarction) Code(s): I21.4 - NON-ST ELEVATION (NSTEMI) MYOCARDIAL INFARCTION Status: Acute (2) CAD (coronary artery disease) Code(s): I25.10 - ATHSCL HEART DISEASE OF [place] CORONARY ARTERY W/O ANG PCTRS Status: Chronic (3) Diabetes type 2, controlled Code(s): E11.9 - TYPE 2 DIABETES MELLITUS WITHOUT COMPLICATIONS Status: Chronic (4) Hypertension Code(s): I10 - ESSENTIAL (PRIMARY) HYPERTENSION Status: Chronic (5) PAD (peripheral artery disease) Code(s): I73.9 - PERIPHERAL VASCULAR DISEASE, UNSPECIFIED Status: Chronic (6) Atrial fibrillation Code(s): I48.91 - UNSPECIFIED ATRIAL FIBRILLATION Status: Resolved - Plan Neuro---will do a stroke workup---CT head tonight and MRI also carotid doppler tomorrow. Vascular--necrotic left toe--will increase her norco---this issue is somewhat chronic will have to wait for now until we clear her from the neuro and cardiac side of things. Cardiac---seen by Cardiology---when stroke workup is done she will need a cardiac cath--for now will continue with current meds. Renal--in the process of checking her electrolytes.
[2019-03-28 17:32] LABS: #Basophils 0.1 thou/uL (0.0-0.2); #Eosinphils 0.3 thou/uL (0.0-0.7); #Monocytes 0.7 thou/uL (0.11-0.59); #Neutrophils 7.3 thou/uL (1.40-6.50); %Basophils 1.1 % (0.0-1.0); %Eosinophils 2.2 % (0.0-10.0); %Lymphocytes 32.4 % (21.0-51.0); %Monocytes 5.4 % (0.0-10.0); %Neutrophils 58.9 % (42.0-75.0); Hemoglobin 15.4 g/dL (12.0-16.0); Mean Corpuscular HGB CONC 33.1 g/dL (32.0-36.0); Mean Corpuscular Volume 90.6 fL (78.0-98.0); Mean Platelet Volume 7.7 fL (7.4-10.4); Platelet Count 289 thou/uL (130-400); RBC Distribution Width 14.4 % (11.5-14.5); Red Blood Cell (RBC) Count 5.13 mill/uL (4.20-5.40); White Blood Cell (WBC) Count 12.4 thou/uL (4.8-10.8)
[2019-03-28 17:52] LABS: Anion Gap 13 mmol/L (10-20); BUN (Urea Nitrogen) 9 mg/dL (9.8-20.1); Calc. Creatinine Clearance 86 mL/min (70-130); Calcium 9.7 mg/dL (7.8-10.44); Carbon Dioxide 26 mmol/L (23-31); Chloride 104 mmol/L (98-107); Estimated GFR-MDRD Greater than 90; Glucose 174 mg/dL (80-115); Magnesium 1.4 mg/dL (1.6-2.6); Potassium 3.7 mmol/L (3.5-5.1); Sodium 139 mmol/L (136-145)
--- NOTE | 2019-03-28 17:56 | CT ---
CT BRAIN WITHOUT CONTRAST: Date: 03/28/19 HISTORY: Left-sided weakness. FINDINGS: Comparison made with exam of 03/16/17. No evidence of acute infarct, hemorrhage, midline shift, or abnormal extra-axial fluid collections ar e seen. The ventricular size is normal and the basilar cisterns are patent. The bony calvarium is int act. The visualized paranasal sinuses and mastoid air cells are well aerated. IMPRESSION: No CT evidence of acute intracranial process. POS: [facility]
--- NOTE | 2019-03-28 18:12 | CON ---
DATE OF CONSULTATION: 03/28/2019 REASON FOR CONSULTATION: Atrial fibrillation with RVR, non-STEMI. HISTORY OF PRESENT ILLNESS: Ms. Lou is a very pleasant 63-year-old female, patient of Dr. Abdirahman Arciniega, who comes to the hospital for chest pain and palpitations. She was found to be in atrial fibrillation with RVR, started on amiodarone drip and converted into sinus. She initially had a troponin which was normal, but eventually increased to 0.3, now at 1.6. She denies any more chest pain, tightness, or pressure. She has been in sinus rhythm. She does have a history of coronary artery disease. She had a stent placed to the right coronary artery about 2 years ago. She had a repeat catheterization by Dr. Arciniega about a year ago, which showed patent stent. She gives a history of having had weakness; about 4 days ago, it started. She woke up with this and noticed that her body would just sway to the left. She would sit down and she would just fall to the left and she would have to grab on with the right arm. She states that this started 4 days ago and is just pretty much the same and has not gotten any worse. Currently, she remains in sinus rhythm and is pain free. PAST MEDICAL HISTORY: 1. Coronary artery disease, status post RCA stent. 2. Severe peripheral vascular disease. There is a vascular ultrasound done on December of this year that shows an occluded SFA. 3. Type 2 diabetes. 4. Hypertension. 5. Tobacco abuse. 6. Hyperlipidemia. 7. Fibromyalgia. 8. Osteoarthritis. PAST SURGICAL HISTORY: 1. Hysterectomy. 2. Ventral hernia repair. 3. Cardiac catheterization with stent by Dr. Mccray two years ago. Repeat heart catheterization by Dr. Arciniega just a year ago. SOCIAL HISTORY: She smokes half a pack. Apparently, this lasts for about a week. Continues to decrease her tobacco use. Social alcohol use. Occasionally uses marijuana. OUTPATIENT MEDICATIONS: 1. Aspirin 325 a day. 2. Plavix 75 mg a day. 3. Metformin 500 mg b.i.d. 4. Lyrica. 5. Lipitor 40 at bedtime. ALLERGIES: NO KNOWN DRUG ALLERGIES. FAMILY HISTORY: Reviewed. REVIEW OF SYSTEMS: A 12-point review of systems was done and was all negative unless stated in the history of present illness. PHYSICAL EXAMINATION: VITAL SIGNS: Temperature 98.1, pulse 103, currently at 68, respiratory rate 18, saturation 97% on room air, and blood pressure 149/70. GENERAL: Awake, alert, oriented x3. No distress. HEENT: Normocephalic and atraumatic. NECK: Supple. LUNGS: Decreased breath sounds bilaterally. CARDIOVASCULAR: S1 and S2. There is a grade 2/6 systolic murmur at the right upper sternal border. ABDOMEN: Soft. Positive bowel sounds. EXTREMITIES: No edema. VASCULAR: Decreased pulses on the left foot. NEURO: Decreased strength on the left upper and left lower extremities. LABORATORY DATA: Echocardiogram was reviewed. EF at 60% to 65%, grade 1 diastolic dysfunction. Chest x-ray, no acute findings. ASSESSMENT AND PLAN: 1. [id number] myocardial infarction. 2. Atrial fibrillation with rapid ventricular response, new onset, currently in sinus rhythm. 3. New-onset weakness in the left side. Concern for acute cerebrovascular accident. 4. Ongoing tobacco abuse. 5. Severe peripheral vascular disease with resting pain on the left leg. PLAN: 1. We would continue full anticoagulation right now. We would recommend a stat CT of the brain to make sure that she is not having any bleeding into her brain. Most likely, she has ischemic stroke that happened about 4 to 5 days ago when she woke up with this weakness. 2. We will wait for workup for possible stroke, and once this is done, she will need a heart catheterization. She agrees to this, and we spoke about the risks and benefits of the procedure and she agrees to proceed. She has had it twice at least before. 3. Further recommendations per results of CT of the brain. Thank you for letting me to participate in the care of your patient. We will follow. Job ID: [id number]
[2019-03-28] MEDS: Atorvastatin Calcium 40 MG TAB PO SCH (20:55)
[2019-03-29] MEDS: HYDROcodone/Acetaminophen 5/325 mg Tablet PO PRN ×5 (00:52→23:34)
[2019-03-29] MEDS: Morphine 4 MG/ML VIAL SLOW IVP PRN ×2 (04:20→13:30)
[2019-03-29] MEDS: hydrALAZINE 20 MG/ML VIAL SLOW IVP PRN (04:25)
[2019-03-29 05:16] LABS: #Basophils 0.1 thou/uL (0.0-0.2); #Eosinphils 0.3 thou/uL (0.0-0.7); #Lymphocytes 3.4 thou/uL (1.20-3.40); #Monocytes 0.6 thou/uL (0.11-0.59); #Neutrophils 5.2 thou/uL (1.40-6.50); %Basophils 1.1 % (0.0-1.0); %Eosinophils 3.1 % (0.0-10.0); %Lymphocytes 35.3 % (21.0-51.0); %Neutrophils 54.5 % (42.0-75.0); Hemoglobin 14.3 g/dL (12.0-16.0); Mean Corpuscular HGB CONC 33.7 g/dL (32.0-36.0); Mean Corpuscular Hemoglobin 30.6 pg (27.0-31.0); Mean Corpuscular Volume 90.8 fL (78.0-98.0); Platelet Count 278 thou/uL (130-400); RBC Distribution Width 14.4 % (11.5-14.5); Red Blood Cell (RBC) Count 4.66 mill/uL (4.20-5.40); White Blood Cell (WBC) Count 9.6 thou/uL (4.8-10.8)
[2019-03-29 05:32] LABS: Anion Gap 11 mmol/L (10-20); BUN (Urea Nitrogen) 7 mg/dL (9.8-20.1); Calc. Creatinine Clearance 91 mL/min (70-130); Calcium 9.3 mg/dL (7.8-10.44); Carbon Dioxide 23 mmol/L (23-31); Chloride 105 mmol/L (98-107); Estimated GFR-MDRD Greater than 90; Glucose 128 mg/dL (80-115); Magnesium 1.4 mg/dL (1.6-2.6); Potassium 3.4 mmol/L (3.5-5.1); Sodium 136 mmol/L (136-145)
[2019-03-29] MEDS: Gabapentin 300 MG CAP PO SCH ×3 (08:43→21:56)
[2019-03-29] MEDS: Cephalexin 250 MG CAP PO SCH ×3 (08:43→21:56)
[2019-03-29] MEDS: glyBURIDE 5 MG TAB PO SCH (08:43)
[2019-03-29] MEDS: Enoxaparin Sodium 60 MG/0.6 ML SYRINGE SC SCH ×2 (08:44→21:57)
[2019-03-29] MEDS: Famotidine 20 MG TAB PO SCH ×2 (08:44→21:56)
[2019-03-29] MEDS: Clopidogrel Bisulfate 75 MG TAB PO SCH (08:44)
[2019-03-29] MEDS: Aspirin Chewable 81 MG TAB PO SCH (08:44)
--- NOTE | 2019-03-29 09:36 | ULT ---
CAROTID ARTERIAL DOPPLER ULTRASOUND: 03/29/2019 HISTORY: Left-sided weakness. Evaluate for carotid artery disease. COMPARISON: None. TECHNIQUE: Multiplanar estrella-scale sonographic imaging of the arterial structures of the neck obtained with color -flow and spectral analysis. FINDINGS: There is antegrade blood flow with normal arterial waveforms documented within the common carotid art sarah, the vertebral artery, the internal carotid artery, and the external carotid artery bilaterally. VESSEL PSV (CM PER SECOND) RIGHT CCA 88 RIGHT ICA 73 RIGHT ECA 101 LEFT CCA 92 LEFT ICA 73 LEFT ECA 107 BILATERAL ICA/CCA RATIO 0.8 IMPRESSION: No hemodynamically significant stenosis on the basis of sonographic velocity criteria. POS: OFF
--- NOTE | 2019-03-29 09:44 | MRI ---
MRI BRAIN WITHOUT CONTRAST: 03/29/2019 HISTORY: Left-sided weakness. COMPARISON: None. TECHNIQUE: Multiplanar, multisequence MR imaging of the brain is obtained without contrast. FINDINGS: The diffusion weighted imaging demonstrates no evidence for acute infarction. The axial gradient echo imaging demonstrates no evidence for intracranial hemorrhage. Detailed asses sment is somewhat limited secondary to persistent patient motion artifact. Arterial flow voids at the axial level of the skull base appear grossly unremarkable on the T2 weight ed imaging. Regional bone marrow signal intensity appears grossly unremarkable. There is no midline shift or mass effect. There is no ventricular enlargement. IMPRESSION: No evidence for intracranial hemorrhage or acute infarction. POS: OFF
--- NOTE | 2019-03-29 11:28 | PDOC.HOSPP ---
- Subjective Encounter Date: 03/29/19 Subjective: still complains of her left toe pain, but the increase in her pain meds did help. - Objective Vital Signs & Weight: Vital Signs (12 hours) Temp Pulse Resp BP BP BP Pulse Ox 03/29/19 08:37 98.4 F 84 18 168/81 H 97 03/29/19 04:25 83 189/85 H 03/29/19 04:07 99 03/29/19 03:09 98.3 F 89 20 189/85 H 99 03/28/19 23:34 94 162/73 H Weight Weight 127 lb 14.4 oz I&O: 03/28/19 03/29/19 03/30/19 06:59 06:59 06:59 Intake Total 720 Balance 720 Result Diagrams: 03/29/19 04:27 03/29/19 04:27 Additional Labs: Accuchecks 03/29/19 03/28/19 03/28/19 05:19 20:30 17:05 POC Glucose 141 H 178 H 167 H Hospitalist ROS - Medication Medications: Active Medications Generic Name Dose Route Start Last Admin Trade Name Freq PRN Reason Stop Dose Admin Hydrocodone Bitart/Acetaminophen 2 tab 03/28/19 17:26 03/29/19 05:51 [place] 5/325 PO 2 tab Q4H PRN Administration Moderate Pain (4-6) Aspirin 81 mg 03/27/19 09:00 03/29/19 08:44 Aspirin Chewable PO 81 mg DAILY ROBERT Administration Atorvastatin Calcium 40 mg 03/26/19 21:00 03/28/19 20:55 Lipitor PO 40 mg HS ROBERT Administration Cephalexin 500 mg 03/26/19 21:00 03/29/19 08:43 Keflex PO 500 mg TID ROBERT Administration Clopidogrel Bisulfate 75 mg 03/26/19 09:00 03/29/19 08:44 Plavix PO 75 mg DAILY ROBERT Administration Enoxaparin Sodium 60 mg 03/26/19 09:00 03/29/19 08:44 Lovenox SC 60 mg 0900,2100 ROBERT Administration Famotidine 20 mg 03/26/19 09:00 03/29/19 08:44 Pepcid PO 20 mg BID ROBERT Administration Gabapentin 300 mg 03/26/19 09:00 03/29/19 08:43 Neurontin PO 300 mg TID ROBERT Administration Glyburide 5 mg 09/01/19 08:00 03/29/19 08:43 Diabeta PO 5 mg QAM-WM ROBERT Administration Hydralazine HCl 10 mg 03/27/19 12:06 03/29/19 04:25 Apresoline SLOW IVP 10 mg Q2H PRN Administration SBP Greater Than 170 Insulin Human Lispro 0 units 03/26/19 07:32 03/27/19 11:22 Humalog SC 6 units .MODERATE SLIDING SC PRN Administration Moderate Correctional Scale Labetalol HCl 20 mg 03/26/19 07:32 03/26/19 17:19 Normodyne SLOW IVP 20 mg Q4H PRN Administration SBP > 180 and HR >/= 70 Morphine Sulfate 4 mg 03/26/19 18:02 03/29/19 04:20 Morphine SLOW IVP 4 mg Q4H PRN Administration Pain Zolpidem Tartrate 5 mg 03/26/19 07:32 03/26/19 20:15 Ambien PO 5 mg HSPRN PRN Administration Insomnia - Exam General Appearance: NAD, awake alert Eye: PERRL, anicteric sclera ENT: normocephalic atraumatic, no oropharyngeal lesions, moist mucosa Neck: supple, symmetric, no JVD, no thyromegaly, no lymphadenopathy, no carotid bruit Heart: RRR, no murmur, no gallops, no rubs, normal peripheral pulses Respiratory: CTAB, no wheezes, no rales, no ronchi, normal chest expansion, no tachypnea, normal percussion Gastrointestinal: soft, non-tender, non-distended, normal bowel sounds, no palpable masses, no hepatomegaly, no splenomegaly, no bruit Extremities: no cyanosis (left toe appears necrotic, but no signs for infection. ) Hosp A/P (1) NSTEMI (non-ST elevated myocardial infarction) Code(s): I21.4 - NON-ST ELEVATION (NSTEMI) MYOCARDIAL INFARCTION Status: Acute (2) CAD (coronary artery disease) Code(s): I25.10 - ATHSCL HEART DISEASE OF [place] CORONARY ARTERY W/O ANG PCTRS Status: Chronic (3) Diabetes type 2, controlled Code(s): E11.9 - TYPE 2 DIABETES MELLITUS WITHOUT COMPLICATIONS Status: Chronic (4) Hypertension Code(s): I10 - ESSENTIAL (PRIMARY) HYPERTENSION Status: Chronic (5) PAD (peripheral artery disease) Code(s): I73.9 - PERIPHERAL VASCULAR DISEASE, UNSPECIFIED Status: Chronic (6) Atrial fibrillation Code(s): I48.91 - UNSPECIFIED ATRIAL FIBRILLATION Status: Resolved - Plan Neuro--CT head , MRI , carotid doppler all negative. Vascular--necrotic left toe--will increase her norco---this issue is somewhat chronic will have to wait for now until we clear her from the neuro and cardiac side of things ---I did request a general surgery consult. Cardiac---seen by Cardiology---since stroke workup is done she will need a cardiac cath--for now will continue with current meds awaiting Cardio input. BP has been high, treated PRN, will start Toprol. Renal--k and mg are low--will replace
[2019-03-29] MEDS ORDERED: Potassium Chloride 20 MEQ TAB PO SCH ×2 (11:45→12:15)
[2019-03-29] MEDS ORDERED: Magnesium 2 GM/50 ML 2 GM in Premix Bag 1 BAG IVPB SCH (12:15)
[2019-03-29] MEDS ORDERED: CEFAZOLIN 2 GM in Premix Bag 1 BAG IVPB SCH (19:45)
[2019-03-29] MEDS: Atorvastatin Calcium 40 MG TAB PO SCH (21:57)
--- NOTE | 2019-03-30 02:00 | CON ---
DATE OF CONSULTATION: HISTORY OF PRESENT ILLNESS: Pavithra Lou is a 63-year-old black female, who has a long history of tobacco abuse pack a day, has had a [employer] of the left leg by Dr. Wilson Mccray in December of this year for pain in her left great toe. He told her that time that she may need eventual amputation. The patient was admitted to hospitalist service on 03/26/2019 for chest pain, atrial fibrillation, RVR, [id number], and felt to have a non-ST elevation TN with atrial fibrillation with RVR, new onset. The patient has had a CT scan of the brain and MRI scan of the brain and a carotid Doppler study. CT scan and MRI scan are negative without acute event and carotid Doppler is negative without flow-limiting stenosis. Echocardiogram has revealed a 60% EF, mild mitral and tricuspid regurgitation. I have talked to Dr. Paramjit Potter regarding evaluation for repeat angiography to see if her blood supply in her left foot is optimized. The patient is at risk for eventual limb loss due to ongoing tobacco abuse and progressive PAD. She understands wound would not heal, but tomorrow, we will plan amputation of her left great toe and metatarsal and plan possible primary closure as she has dry gangrene without cellulitis. ALLERGIES: NONE. SOCIAL HISTORY: Tobacco, one pack per day. Alcohol, none. MEDICATIONS: 1. Metformin. 2. Glipizide. 3. Gabapentin. 4. Plavix. 5. Cephalexin. 6. Aspirin. 7. Hydrocodone. 8. Lyrica. 9. Lipitor. PAST SURGICAL HISTORY: [employer] of the left leg by Dr. Wilson Mccray in December, coronary stents, hysterectomy, ventral hernia repair. PAST MEDICAL HISTORY: Coronary artery disease, right coronary stent, diabetes mellitus type 2, hypertension, ongoing tobacco abuse, dyslipidemia, PAD, osteoarthritis. PHYSICAL EXAMINATION: VITAL SIGNS: Height 5 feet 5 inches, 127 pounds, 21 BMI, temperature 98.3, pulse 77. HEAD, EARS, EYES, NOSE, AND THROAT: Unremarkable. CARDIAC: Regular rate and rhythm without murmur or gallop. ABDOMEN: Soft and nontender. Palpable femoral pulses, nonpalpable distal pulses. Gangrenous changes in the left great toe extending to the metatarsophalangeal area. Exquisite pain over the left great toe, ulceration plantar with dry gangrene changes without cellulitis. I cannot palpate pedal pulses. LABORATORY DATA: Sodium 136, BUN 7, creatinine 0.59. Hemoglobin 14 and white count 9.6. ASSESSMENT/PLAN: 1. Peripheral artery disease with gangrene left great toe. Dr. Potter will see her tomorrow and assess whether intervention is worthwhile. We will plan amputation of left great toe and metatarsal tomorrow, possible primary closure. She understands the possibility of eventual amputation and nonhealing of the wound. I have recommended tobacco cessation. 2. Diabetes mellitus. 3. Hypertension. 4. Tobacco abuse. Job ID: [id number]
[2019-03-30] MEDS: HYDROcodone/Acetaminophen 5/325 mg Tablet PO PRN ×4 (03:15→20:19)
[2019-03-30 05:50] LABS: #Basophils 0.1 thou/uL (0.0-0.2); #Eosinphils 0.4 thou/uL (0.0-0.7); #Lymphocytes 3.3 thou/uL (1.20-3.40); #Monocytes 0.5 thou/uL (0.11-0.59); #Neutrophils 6.6 thou/uL (1.40-6.50); %Basophils 0.7 % (0.0-1.0); %Lymphocytes 30.5 % (21.0-51.0); %Monocytes 4.4 % (0.0-10.0); %Neutrophils 60.5 % (42.0-75.0); Hemoglobin 14.6 g/dL (12.0-16.0); Mean Corpuscular HGB CONC 31.3 g/dL (32.0-36.0); Mean Corpuscular Hemoglobin 29.2 pg (27.0-31.0); Mean Corpuscular Volume 93.2 fL (78.0-98.0); Mean Platelet Volume 8.1 fL (7.4-10.4); Platelet Count 289 thou/uL (130-400); RBC Distribution Width 14.3 % (11.5-14.5); Red Blood Cell (RBC) Count 5.02 mill/uL (4.20-5.40); White Blood Cell (WBC) Count 10.8 thou/uL (4.8-10.8)
[2019-03-30] MEDS: Morphine 4 MG/ML VIAL SLOW IVP PRN ×3 (06:04→21:52)
[2019-03-30 06:13] LABS: Anion Gap 13 mmol/L (10-20); BUN (Urea Nitrogen) 8 mg/dL (9.8-20.1); Calc. Creatinine Clearance 88 mL/min (70-130); Calcium 9.8 mg/dL (7.8-10.44); Carbon Dioxide 22 mmol/L (23-31); Chloride 105 mmol/L (98-107); Estimated GFR-MDRD Greater than 90; Glucose 133 mg/dL (80-115); Magnesium 1.7 mg/dL (1.6-2.6); Potassium 4.3 mmol/L (3.5-5.1); Sodium 136 mmol/L (136-145)
[2019-03-30] MEDS ORDERED: Sodium Chloride 0.9% 1,000 ML IV SCH (08:00)
[2019-03-30] MEDS: Cephalexin 250 MG CAP PO SCH ×3 (08:06→20:17)
[2019-03-30] MEDS: Aspirin Chewable 81 MG TAB PO SCH ×2 (08:06→09:58)
[2019-03-30] MEDS: Famotidine 20 MG TAB PO SCH ×2 (08:06→20:17)
[2019-03-30] MEDS: Gabapentin 300 MG CAP PO SCH ×3 (08:06→20:18)
[2019-03-30] MEDS: Enoxaparin Sodium 60 MG/0.6 ML SYRINGE SC SCH ×3 (08:07→20:18)
[2019-03-30] MEDS: Clopidogrel Bisulfate 75 MG TAB PO SCH ×2 (08:07→09:58)
[2019-03-30] MEDS: glyBURIDE 5 MG TAB PO SCH ×2 (08:07→09:58)
--- NOTE | 2019-03-30 09:29 | PRG ---
DATE OF SERVICE: 03/30/2019 Ms. Lou is seen today. She is having severe pain in her left toe. She has superficial femoral artery occlusion in left side by physical exam and Doppler. She has had previous [employer], Dr. Wilson Mccray in December. The patient needs cardiac catheterization for a recent myocardial infarction. Her stroke workup was negative with a normal carotid ultrasound, normal MRI and CAT scan of the brain. She continues to complain of pain in the left toe. Today, we will postpone amputation of great toe, awaiting cardiac catheterization. I have talked to Dr. Arciniega who will probably plan this tomorrow. She will need arteriography, runoff to the left leg to see if there is anything that can be done to improve her blood supply. Dr. Potter has seen her. She might even require operative femoral popliteal artery bypass to optimize wound healing. At this point, I will tentatively schedule her surgery for Thursday, awaiting cardiac catheterization arteriography results. There is no infection in the toe. This is a dry gangrene and rest pain from her PAD, and operative intervention is not warranted prior to cardiac evaluation. Job ID: [id number]
[2019-03-30] MEDS: HumaLOG 300 UNITS/3 ML VIAL SC PRN (11:11)
--- NOTE | 2019-03-30 11:18 | CON ---
DATE OF CONSULTATION: HISTORY OF PRESENT ILLNESS: This is a 63-year-old female with multiple cardiovascular risk factors. The patient was admitted with chest pain and left toe pain and had a slight bump in her troponin. She was seen by Dr. Vang, who recommended cardiac catheterization as the patient's other issues have resolved. She evidently was scheduled for a peripheral angiography by Dr. Arciniega several months ago and she is not sure why this fell through, but ultimately she saw Dr. Mccray, who performed some sort of balloon work on her left leg. She then has had no significant improvement in her toe pain. She has had previous cardiac catheterization by Dr. Castillo with a stent 2 or 3 years ago and then more recently by Dr. Arciniega, where the stent was patent. As mentioned, she has a history of insulin-dependent diabetes mellitus with an A1c of 7.5. She has a history of hypertension in the past, but stopped her medications. She has a history of diabetes, on insulin and oral medications both. She is uncertain as to her cholesterol status, but is on no medications for this. SOCIAL HISTORY: The patient smokes a half pack of cigarettes a day down from 2 packs of cigarettes a day in the past. She states she currently lives alone, but is trying to arrange having a younger family member, granddaughter stay with her. PAST SURGICAL HISTORY: Includes hysterectomy, ventral hernia repair. HOME MEDICATIONS: Include; 1. Aspirin. 2. Plavix. 3. Metformin. 4. Lyrica. 5. Lipitor, that she is aware of. REVIEW OF SYSTEMS: The patient has swelling in her right leg that has improved since admission here. PHYSICAL EXAMINATION: GENERAL: A lady appearing older than her stated age. NECK: No carotid bruits. LUNGS: Clear to auscultation. CARDIAC: Regular rate and rhythm. No murmurs. ABDOMEN: Obese, protuberant, nontender. EXTREMITIES: She has palpable femoral pulses bilaterally as well as a right popliteal pulse. I cannot palpate pedal pulses. 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 She has a good triphasic Doppler signal and a right posterior tibial pulse and she has no DP Doppler signal on the right. On the left, she has a weaker posterior tibial pulse, absent dorsalis pedis pulse, and a weak peroneal pulse. Clinically, the patient has occluded superficial femoral artery and I am not sure what vessel was ballooned in the recent past about 3 months ago [facility]. Since the patient is in need of a cardiac catheterization and Dr. Arciniega has previously evaluated her peripheral vascular disease, I will ask him to combine his catheterization for the heart with evaluation of her peripheral vascular status. I think at this point, wound healing is questionable, but I think it is reasonable to proceed with an amputation of the toe since it is clearly gangrenous. Job ID: [id number]
[2019-03-30] MEDS ORDERED: Amlodipine 10 MG TAB PO SCH (13:30)
--- NOTE | 2019-03-30 14:00 | PDOC.HOSPP ---
- Subjective Encounter Date: 03/30/19 Subjective: Her toe pain is better controlled otherwise no new complaints. - Objective Vital Signs & Weight: Vital Signs (12 hours) Temp Pulse Resp BP BP Pulse Ox 03/30/19 12:24 151/72 H 03/30/19 12:14 99.5 F 67 18 182/87 H 99 03/30/19 08:09 97 03/30/19 07:46 99.3 F 58 L 16 190/93 H 97 03/30/19 05:20 98.4 F 65 18 144/74 H 96 Weight Weight 121 lb 8 oz I&O: 03/29/19 03/30/19 03/31/19 06:59 06:59 06:59 Intake Total 720 300 127 Output Total 500 300 Balance 720 -200 -173 Result Diagrams: 03/30/19 05:36 03/30/19 05:36 Additional Labs: Accuchecks 03/30/19 03/30/19 03/29/19 10:42 05:38 20:08 POC Glucose 274 H 129 H 279 H 03/29/19 16:49 POC Glucose 192 H Hospitalist ROS - Medication Medications: Active Medications Generic Name Dose Route Start Last Admin Trade Name Freq PRN Reason Stop Dose Admin Hydrocodone Bitart/Acetaminophen 2 tab 03/28/19 17:26 03/30/19 09:57 [place] 5/325 PO 2 tab Q4H PRN Administration Moderate Pain (4-6) Aspirin 81 mg 03/27/19 09:00 03/30/19 09:58 Aspirin Chewable PO 81 mg DAILY ROBERT Administration Atorvastatin Calcium 40 mg 03/26/19 21:00 03/29/19 21:57 Lipitor PO 40 mg HS ROBERT Administration Cephalexin 500 mg 03/26/19 21:00 03/30/19 08:06 Keflex PO 500 mg TID ROBERT Administration Clopidogrel Bisulfate 75 mg 03/26/19 09:00 03/30/19 09:58 Plavix PO 75 mg DAILY ROBERT Administration Enoxaparin Sodium 60 mg 03/26/19 09:00 03/30/19 09:58 Lovenox SC 60 mg 0900,2100 ROBERT Administration Famotidine 20 mg 03/26/19 09:00 03/30/19 08:06 Pepcid PO 20 mg BID ROBERT Administration Gabapentin 300 mg 03/26/19 09:00 03/30/19 08:06 Neurontin PO 300 mg TID ROBERT Administration Glyburide 5 mg 03/27/19 08:00 03/30/19 09:58 Diabeta PO 5 mg QAM-WM ROBERT Administration Hydralazine HCl 10 mg 03/27/19 12:06 03/29/19 04:25 Apresoline SLOW IVP 10 mg Q2H PRN Administration SBP Greater Than 170 Insulin Human Lispro 0 units 03/26/19 07:32 03/30/19 11:11 Humalog SC 6 units .MODERATE SLIDING SC PRN Administration Moderate Correctional Scale Labetalol HCl 20 mg 03/26/19 07:32 03/26/19 17:19 Normodyne SLOW IVP 20 mg Q4H PRN Administration SBP > 180 and HR >/= 70 Metoprolol Succinate 50 mg 03/30/19 09:00 03/30/19 08:06 Toprol Xl PO 50 mg DAILY ROBERT Administration Morphine Sulfate 4 mg 03/26/19 18:02 03/30/19 12:23 Morphine SLOW IVP 4 mg Q4H PRN Administration Pain Sodium Chloride 10 ml 03/29/19 21:00 03/30/19 08:07 Flush - Normal Saline IVF 10 ml Q12HR ROBERT Administration Sodium Chloride 10 ml 03/29/19 12:37 03/30/19 06:03 Flush - Normal Saline IVF 10 ml PRN PRN Administration Saline Flush Zolpidem Tartrate 5 mg 03/26/19 07:32 03/26/19 20:15 Ambien PO 5 mg HSPRN PRN Administration Insomnia - Exam General Appearance: NAD, awake alert Eye: PERRL, anicteric sclera ENT: normocephalic atraumatic, no oropharyngeal lesions, moist mucosa Neck: supple, symmetric, no JVD, no thyromegaly, no lymphadenopathy, no carotid bruit Heart: RRR, no murmur, no gallops, no rubs, normal peripheral pulses Respiratory: CTAB, no wheezes, no rales, no ronchi, normal chest expansion, no tachypnea, normal percussion Gastrointestinal: soft, non-tender, non-distended, normal bowel sounds, no palpable masses, no hepatomegaly, no splenomegaly, no bruit Extremities: no cyanosis (necrotic left toe), no edema Neurological: CN's grossly intact, normal sensation to touch, no weakness, no focal deficits, no new deficit Hosp A/P (1) NSTEMI (non-ST elevated myocardial infarction) Code(s): I21.4 - NON-ST ELEVATION (NSTEMI) MYOCARDIAL INFARCTION Status: Acute (2) CAD (coronary artery disease) Code(s): I25.10 - ATHSCL HEART DISEASE OF [place] CORONARY ARTERY W/O ANG PCTRS Status: Chronic (3) Diabetes type 2, controlled Code(s): E11.9 - TYPE 2 DIABETES MELLITUS WITHOUT COMPLICATIONS Status: Chronic (4) Hypertension Code(s): I10 - ESSENTIAL (PRIMARY) HYPERTENSION Status: Chronic (5) PAD (peripheral artery disease) Code(s): I73.9 - PERIPHERAL VASCULAR DISEASE, UNSPECIFIED Status: Chronic (6) Atrial fibrillation Code(s): I48.91 - UNSPECIFIED ATRIAL FIBRILLATION Status: Resolved - Plan Neuro--CT head , MRI , carotid doppler all negative. Vascular--necrotic left toe--will increase her norco---this issue is somewhat chronic will have to wait until she is cleared from the cardiac side --- general surgery saw her in consult as well as vascular surgery--the plan is in motion. Cardiac---seen by Cardiology---since stroke workup is done she will need a cardiac cath--she will have it tomorrow BP has been high, started Toprol yest, since HR is borderline low I will add lisinopril. Renal--monitor lytes
--- NOTE | 2019-03-30 17:26 | PDOC.CPN ---
- Subjective Date: 03/30/19 Time: 12:45 Interval history: She continues to have severe toe pains. No chest pain, no episodes of afib on monitor. - Review of Systems General: denies: fever/chills, weight/appetite/sleep changes, night sweats, fatigue Respiratory: denies: cough, congestion, shortness of breath, exercise intolerance Cardiovascular: denies: chest pain, palpitation, edema, paroxysmal nocturnal dyspnea, orthopnea Gastrointestinal: denies: nausea, vomiting, diarrhea, constipation, abd pain, GI bleeding Musculoskeletal: reports: pain Neurological: denies: numbness, syncope, seizure, weakness - Objective Allergies/Adverse Reactions: Allergies Allergy/AdvReac Type Severity Reaction Status Date / Time No Known Allergies Allergy Verified 12/15/13 16:25 Visit Medications: Current Medications Acetaminophen (Tylenol) 650 mg PO Q4H PRN PRN Reason: Headache/Fever/Mild Pain (1-3) Hydrocodone Bitart/Acetaminophen ([place] 5/325) 2 tab PO Q4H PRN PRN Reason: Moderate Pain (4-6) Last Admin: 03/30/19 16:26 Dose: 2 tab Artificial Tears (Tears Naturale) 2 drop EA EYE PRN PRN PRN Reason: Dry Eyes Aspirin (Aspirin Chewable) 81 mg PO DAILY [facility] Last Admin: 03/30/19 09:58 Dose: 81 mg Atorvastatin Calcium (Lipitor) 40 mg PO HS [facility] Last Admin: 03/29/19 21:57 Dose: 40 mg Bisacodyl (Dulcolax) 10 mg MO DAILYPRN PRN PRN Reason: Constipation Calcium Carbonate (Tums) 1,000 mg PO Q4H PRN PRN Reason: Heartburn or Indigestion Cephalexin (Keflex) 500 mg PO TID [facility] Last Admin: 03/30/19 14:29 Dose: 500 mg Clopidogrel Bisulfate (Plavix) 75 mg PO DAILY [facility] Last Admin: 03/30/19 09:58 Dose: 75 mg Dextrose/Water (Dextrose 50%) 25 gm SLOW IVP PRN PRN PRN Reason: Hypoglycemia Enoxaparin Sodium (Lovenox) 60 mg SC 0900,2100 [facility] Last Admin: 03/30/19 09:58 Dose: 60 mg Famotidine (Pepcid) 20 mg PO BID [facility] Last Admin: 09/04/19 08:06 Dose: 20 mg Gabapentin (Neurontin) 300 mg PO TID [facility] Last Admin: 03/30/19 14:29 Dose: 300 mg Glucagon (Glucagon) 1 mg IM PRN PRN PRN Reason: Hypoglycemia Glyburide (Diabeta) 5 mg PO QAM-WM [facility] Last Admin: 03/30/19 09:58 Dose: 5 mg Guaifenesin (Robitussin Sf) 200 mg PO Q4H PRN PRN Reason: Cough Hydralazine HCl (Apresoline) 10 mg SLOW IVP Q2H PRN PRN Reason: SBP Greater Than 170 Last Admin: 03/29/19 04:25 Dose: 10 mg Dextrose/Water (D5w) 1,000 mls @ 0 mls/hr IV .Q0M PRN PRN Reason: Hypoglycemia Cefazolin Sodium/Dextrose 2 gm (/ Device) 50 mls @ 100 mls/hr IVPB ONCALL-OR [facility] Stop: 03/30/19 18:00 Insulin Human Lispro (Humalog) 0 units SC .MODERATE SLIDING SC PRN PRN Reason: Moderate Correctional Scale Last Admin: 03/30/19 11:11 Dose: 6 units Insulin Human Lispro (Humalog) 0 units SC .BEDTIME SLIDING SC PRN PRN Reason: Bedtime Correctional Scale Labetalol HCl (Normodyne) 20 mg SLOW IVP Q4H PRN PRN Reason: SBP > 180 and HR >/= 70 Last Admin: 03/26/19 17:19 Dose: 20 mg Lisinopril (Zestril) 20 mg PO DAILY [facility] Loperamide HCl (Imodium) 2 mg PO PRN PRN PRN Reason: Diarrhea/Loose Stools Loratadine (Claritin) 10 mg PO DAILYPRN PRN PRN Reason: Sinus Symptoms Metoprolol Succinate (Toprol Xl) 50 mg PO DAILY [facility] Last Admin: 03/30/19 08:06 Dose: 50 mg Morphine Sulfate (Morphine) 4 mg SLOW IVP Q4H PRN PRN Reason: Pain Last Admin: 03/30/19 12:23 Dose: 4 mg Nitroglycerin (Nitrostat) 0.4 mg SL Q5MIN PRN PRN Reason: Chest Pain Senna/Docusate Sodium (Senokot S) 2 tab PO BID PRN PRN Reason: Constipation Sodium Chloride ([place] 0.65%) 0 ml EA NARE QIDPRN PRN PRN Reason: Nasal Congestion Sodium Chloride (Flush - Normal Saline) 10 ml IVF Q12HR ROBERT Last Admin: 03/30/19 08:07 Dose: 10 ml Sodium Chloride (Flush - Normal Saline) 10 ml IVF PRN PRN PRN Reason: Saline Flush Last Admin: 03/30/19 06:03 Dose: 10 ml Throat Lozenges (Cepastat Lozenges) 1 yvonne PO Q2H PRN PRN Reason: Sore Throat Zolpidem Tartrate (Ambien) 5 mg PO HSPRN PRN PRN Reason: Insomnia Last Admin: 03/26/19 20:15 Dose: 5 mg Vital Signs & Weight: Vital Signs Temp Pulse Resp BP BP Pulse Ox 03/30/19 16:25 99.9 F H 60 18 167/81 H 98 03/30/19 14:29 51 L 177/87 H 03/30/19 12:24 151/72 H 03/30/19 12:14 99.5 F 67 18 182/87 H 99 03/30/19 08:09 97 03/30/19 07:46 99.3 F 58 L 16 190/93 H 97 Weight 121 lb 8 oz - Physical Exam General: alert & oriented x3, no apparent distress HEENT: mucus membranes moist Neck: supple neck Cardiac: regular rate and rhythm, no murmur Lungs: clear to auscultation Neuro: grossly intact Abdomen: active bowel sounds, soft, non-tender Skin: clear Musculoskeletal: other (Painfull left great toe. No pulses on left popliteal artery.) - Labs Result Diagrams: 03/30/19 05:36 03/30/19 05:36 Troponin/CKMB Troponin I 1.608 ng/mL (< 0.028) H* 03/26/19 08:24 - Telemetry Sinus rhythms and dysrhythmias: sinus rhythm - Assessment/Plan Assessment/Plan: 1. NSTEMI 2. Paroxysmal afib 3. PVD 4. Necrotic let toe. Resting pain. PLAN: - Will risk stratify with [facility]. We spoke about risks and benefits, risks including but not limited to stroke, [place], , bleeding and need for blood transfusion, limb loss, organ loss. She understands and verbalizes understanding of this and agrees to proceed. 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 - Dr. Potter asked to also get a peripheral angio while we have catheters in. Will do diagnostic peripheral angio focusing more on the left leg. She has an US showing an occluded left SFA/popliteal.
[2019-03-30] MEDS ORDERED: Communication Order-Pharmacy FS SCH (17:30)
[2019-03-30] MEDS: Atorvastatin Calcium 40 MG TAB PO SCH (20:17)
[2019-03-30] MEDS: Sodium Chloride 0.9% 1,000 ML IV SCH (23:57)
[2019-03-31] MEDS: Cephalexin 250 MG CAP PO SCH ×3 (05:47→20:25)
[2019-03-31] MEDS: Famotidine 20 MG TAB PO SCH ×2 (05:47→20:25)
[2019-03-31] MEDS: Lisinopril 20 MG TAB PO SCH (05:47)
[2019-03-31] MEDS: Clopidogrel Bisulfate 75 MG TAB PO SCH (05:47)
[2019-03-31] MEDS: Gabapentin 300 MG CAP PO SCH ×3 (05:48→20:25)
[2019-03-31] MEDS: Morphine 4 MG/ML VIAL SLOW IVP PRN ×2 (05:49→23:50)
[2019-03-31] MEDS: Aspirin Chewable 81 MG TAB PO SCH (05:49)
[2019-03-31] MEDS: glyBURIDE 5 MG TAB PO SCH (05:54)
[2019-03-31] MEDS ORDERED: Lidocaine 1% (PF) 30 ML VIAL ONE (06:38)
[2019-03-31] MEDS ORDERED: Fentanyl 100 MCG/2 ML VIAL ONE (07:17)
[2019-03-31] MEDS ORDERED: Midazolam HCl 2 mg/2 ml Vial ONE (07:18)
[2019-03-31] MEDS ORDERED: hydrALAZINE 20 MG/ML VIAL ONE (07:36)
--- NOTE | 2019-03-31 07:54 | PRG ---
DATE OF SERVICE: 03/31/2019 Ms. Lou is having pain to her left toe. I did review her films. She did have a lower extremity runoff, which showed a complete occlusion of the left SFA. She also had elevated troponin. Plan is to proceed with coronary angiography. I discussed procedure in full detail Ms. Lou. Risks include, but not limited to the following: , stroke, CT, need for emergency surgery, loss of limb, bleeding, and infection, as well as a reaction to the dye causing kidney failure and needing long-term dialysis. I also discussed the risks of PCI to include all of the above including coronary dissection and perforation in addition to acute stent thrombosis and restenosis. All questions about the procedure were answered. Given the above, the patient agreed to proceed with coronary angiography and possible PCI. We will proceed with a bare-metal stent if needed. We will also image the lower extremity system and proceed with intervention if felt to be an appropriate candidate. I did discuss case with Dr. Mp Potter and he agreed. Further recommendations pending the above. Job ID: [id number]
[2019-03-31] MEDS ORDERED: Amlodipine 10 MG TAB PO SCH (09:00)
[2019-03-31] MEDS: HYDROcodone/Acetaminophen 5/325 mg Tablet PO PRN ×3 (09:37→20:25)
[2019-03-31] MEDS: Sodium Chloride 0.9% 1,000 ML IV SCH ×2 (13:40→20:26)
--- NOTE | 2019-03-31 15:35 | PDOC.HOSPP ---
- Subjective Encounter Date: 03/31/19 Subjective: feels better and with no complaints - Objective Vital Signs & Weight: Vital Signs (12 hours) Temp Pulse Resp BP BP BP BP 03/31/19 11:48 98.9 F 79 18 125/57 L 03/31/19 08:45 83 16 149/71 H 03/31/19 05:47 180/87 H 03/31/19 04:50 98.9 F 77 16 180/87 H Pulse Ox 03/31/19 11:48 97 03/31/19 08:45 97 03/31/19 05:47 03/31/19 04:50 95 Weight Weight 121 lb 9.6 oz I&O: 03/30/19 03/31/19 04/01/19 06:59 06:59 06:59 Intake Total 300 1247 Output Total 500 1700 Balance -200 -453 Result Diagrams: 03/30/19 05:36 03/30/19 05:36 Additional Labs: Accuchecks 03/31/19 03/31/19 03/30/19 10:50 05:01 20:20 POC Glucose 155 H 153 H 290 H 03/30/19 03/30/19 17:44 16:51 POC Glucose 164 H 54 L* Hospitalist ROS - Medication Medications: Active Medications Generic Name Dose Route Start Last Admin Trade Name Freq PRN Reason Stop Dose Admin Hydrocodone Bitart/Acetaminophen 2 tab 03/28/19 17:26 03/31/19 13:40 [place] 5/325 PO 2 tab Q4H PRN Administration Moderate Pain (4-6) Aspirin 81 mg 03/27/19 09:00 03/31/19 05:49 Aspirin Chewable PO 81 mg DAILY ROBERT Administration Atorvastatin Calcium 40 mg 03/26/19 21:00 03/30/19 20:17 Lipitor PO 40 mg HS ROBERT Administration Cephalexin 500 mg 03/26/19 21:00 03/31/19 05:47 Keflex PO 500 mg TID ROBERT Administration Clopidogrel Bisulfate 75 mg 03/26/19 09:00 03/31/19 05:47 Plavix PO 75 mg DAILY ROBERT Administration Famotidine 20 mg 03/26/19 09:00 03/31/19 05:47 Pepcid PO 20 mg BID ROBERT Administration Gabapentin 300 mg 03/26/19 09:00 03/31/19 05:48 Neurontin PO 300 mg TID ROBERT Administration Glyburide 5 mg 03/27/19 08:00 03/31/19 05:54 Diabeta PO Not Given QAM-WM ROBERT Hydralazine HCl 10 mg 03/27/19 12:06 03/29/19 04:25 Apresoline SLOW IVP 10 mg Q2H PRN Administration SBP Greater Than 170 Sodium Chloride 1,000 mls @ 100 mls/hr 03/31/19 00:01 03/31/19 13:40 Normal Saline 0.9% IV 1,000 mls .Q10H ROBERT Administration Insulin Human Lispro 0 units 03/26/19 07:32 03/30/19 11:11 Humalog SC 6 units .MODERATE SLIDING SC PRN Administration Moderate Correctional Scale Labetalol HCl 20 mg 03/26/19 07:32 03/26/19 17:19 Normodyne SLOW IVP 20 mg Q4H PRN Administration SBP > 180 and HR >/= 70 Lisinopril 20 mg 03/31/19 09:00 03/31/19 05:47 Zestril PO 20 mg DAILY ROBERT Administration Metoprolol Succinate 50 mg 03/30/19 09:00 03/31/19 05:47 Toprol Xl PO 50 mg DAILY ROBERT Administration Morphine Sulfate 4 mg 03/26/19 18:02 03/31/19 05:49 Morphine SLOW IVP 4 mg Q4H PRN Administration Pain Sodium Chloride 10 ml 03/29/19 21:00 03/31/19 05:54 Flush - Normal Saline IVF Not Given Q12HR ROBERT Sodium Chloride 10 ml 03/29/19 12:37 03/30/19 06:03 Flush - Normal Saline IVF 10 ml PRN PRN Administration Saline Flush Zolpidem Tartrate 5 mg 03/26/19 07:32 03/26/19 20:15 Ambien PO 5 mg HSPRN PRN Administration Insomnia - Exam General Appearance: NAD, awake alert Eye: PERRL, anicteric sclera ENT: normocephalic atraumatic, no oropharyngeal lesions, moist mucosa Neck: supple, symmetric, no JVD, no thyromegaly, no lymphadenopathy, no carotid bruit Heart: RRR, no murmur, no gallops, no rubs, normal peripheral pulses Respiratory: CTAB, no wheezes, no rales, no ronchi, normal chest expansion, no tachypnea, normal percussion Gastrointestinal: soft, non-tender, non-distended, normal bowel sounds, no palpable masses, no hepatomegaly, no splenomegaly, no bruit Extremities: no cyanosis, no clubbing, no edema Skin: normal turgor, no lesions, no rashes Musculoskeletal: normal tone, normal strength, no muscle wasting Hosp A/P (1) NSTEMI (non-ST elevated myocardial infarction) Code(s): I21.4 - NON-ST ELEVATION (NSTEMI) MYOCARDIAL INFARCTION Status: Acute (2) CAD (coronary artery disease) Code(s): I25.10 - ATHSCL HEART DISEASE OF [place] CORONARY ARTERY W/O ANG PCTRS Status: Chronic (3) Diabetes type 2, controlled Code(s): E11.9 - TYPE 2 DIABETES MELLITUS WITHOUT COMPLICATIONS Status: Chronic (4) Hypertension Code(s): I10 - ESSENTIAL (PRIMARY) HYPERTENSION Status: Chronic (5) PAD (peripheral artery disease) Code(s): I73.9 - PERIPHERAL VASCULAR DISEASE, UNSPECIFIED Status: Chronic (6) Atrial fibrillation Code(s): I48.91 - UNSPECIFIED ATRIAL FIBRILLATION Status: Resolved - Plan Neuro--CT head , MRI , carotid doppler all negative. Vascular--necrotic left toe--norco increased----pain is better controlled--- being cleared from the cardiac side ---general surgery saw her in consult as well as vascular surgery--the plan is in motion. Cardiac---seen by Cardiology---since stroke workup is done she will need a cardiac cath-- BP has been high, started Toprol two days ago, since HR is borderline low lisinopril was added---BP is better controlled. Renal--monitor lytes
[2019-03-31] MEDS ORDERED: Iopamidol 370 76% 100 ML VIAL ONE (17:05)
[2019-03-31] MEDS: HumaLOG 300 UNITS/3 ML VIAL SC PRN ×2 (17:56→21:40)
[2019-03-31] MEDS: Atorvastatin Calcium 40 MG TAB PO SCH (20:25)
[2019-03-31] MEDS: hydrALAZINE 20 MG/ML VIAL SLOW IVP PRN (23:50)
[2019-04-01] MEDS: Sodium Chloride 0.9% 1,000 ML IV SCH ×3 (00:02→23:31)
[2019-04-01] MEDS: HYDROcodone/Acetaminophen 5/325 mg Tablet PO PRN ×2 (00:59→05:06)
[2019-04-01 04:49] LABS: #Basophils 0.1 thou/uL (0.0-0.2); #Eosinphils 0.3 thou/uL (0.0-0.7); #Lymphocytes 2.7 thou/uL (1.20-3.40); #Monocytes 0.6 thou/uL (0.11-0.59); #Neutrophils 5.5 thou/uL (1.40-6.50); %Eosinophils 3.3 % (0.0-10.0); %Lymphocytes 29.5 % (21.0-51.0); %Monocytes 6.5 % (0.0-10.0); %Neutrophils 59.8 % (42.0-75.0); Hemoglobin 13.2 g/dL (12.0-16.0); Mean Corpuscular HGB CONC 33.4 g/dL (32.0-36.0); Mean Corpuscular Hemoglobin 30.7 pg (27.0-31.0); Mean Corpuscular Volume 91.9 fL (78.0-98.0); Platelet Count 264 thou/uL (130-400); RBC Distribution Width 14.1 % (11.5-14.5); White Blood Cell (WBC) Count 9.2 thou/uL (4.8-10.8)
[2019-04-01 05:10] LABS: Anion Gap 9 mmol/L (10-20); BUN (Urea Nitrogen) 9 mg/dL (9.8-20.1); Calc. Creatinine Clearance 94 mL/min (70-130); Calcium 9.1 mg/dL (7.8-10.44); Carbon Dioxide 25 mmol/L (23-31); Chloride 107 mmol/L (98-107); Estimated GFR-MDRD Greater than 90; Glucose 145 mg/dL (80-115); Potassium 3.5 mmol/L (3.5-5.1); Sodium 137 mmol/L (136-145)
[2019-04-01] MEDS ORDERED: Lidocaine 1% (PF) 30 ML VIAL ONE (06:34)
[2019-04-01] MEDS ORDERED: Fentanyl 100 MCG/2 ML VIAL ONE ×2 (07:06→10:15)
[2019-04-01] MEDS ORDERED: Midazolam HCl 2 mg/2 ml Vial ONE ×3 (07:06→10:15)
[2019-04-01] MEDS ORDERED: Heparin 10,000 UNITS/1 ML VIAL ONE (07:35)
[2019-04-01] MEDS ORDERED: hydrALAZINE 20 MG/ML VIAL ONE ×2 (07:58→08:09)
[2019-04-01] MEDS ORDERED: Aspirin Chewable 81 MG TAB ONE (08:14)
[2019-04-01] MEDS ORDERED: Metoprolol Tartrate 5 MG/5 ML VIAL ONE ×2 (08:14→08:45)
[2019-04-01] MEDS ORDERED: Morphine 2 MG/ML SYRINGE ONE ×2 (08:28→08:44)
[2019-04-01] MEDS ORDERED: Nitroglycerin 4.9 GM Bottle ONE (08:37)
[2019-04-01] MEDS ORDERED: Labetalol HCl 100 MG/20 ML VIAL ONE (08:37)
[2019-04-01] MEDS ORDERED: Lidocaine 2% PF 100 mg/5 ml Syringe ONE (08:45)
[2019-04-01] MEDS ORDERED: Protamine Sulfate 50 MG/5 ML VIAL ONE (08:50)
[2019-04-01] MEDS ORDERED: Sodium Chloride 0.9% 1,000 ML IV SCH (09:00)
[2019-04-01] MEDS ORDERED: Iopamidol 370 76% 50 ML VIAL FS ONE (09:49)
[2019-04-01] MEDS ORDERED: Iopamidol 370 76% 100 ML VIAL ONE (09:49)
[2019-04-01] MEDS: Aspirin Chewable 81 MG TAB PO SCH (10:02)
[2019-04-01] MEDS: Cephalexin 250 MG CAP PO SCH (10:02)
[2019-04-01] MEDS: Famotidine 20 MG TAB PO SCH ×2 (10:02→20:39)
[2019-04-01] MEDS: Clopidogrel Bisulfate 75 MG TAB PO SCH (10:02)
[2019-04-01] MEDS: glyBURIDE 5 MG TAB PO SCH (10:02)
[2019-04-01] MEDS: Gabapentin 300 MG CAP PO SCH ×3 (10:03→20:40)
[2019-04-01] MEDS: Lisinopril 20 MG TAB PO SCH (10:03)
[2019-04-01] MEDS ORDERED: Promethazine HCl 25 MG/ML VIAL SLOW IVP PRN (11:37)
[2019-04-01] MEDS ORDERED: Promethazine HCl 25 MG/ML VIAL IM PRN (11:37)
[2019-04-01] MEDS ORDERED: Ondansetron HCl/PF 4 MG/2 ML Vial IVP PRN (11:37)
[2019-04-01] MEDS ORDERED: PROPOFOL 200 MG/20 ML VIAL ONE (13:39)
--- NOTE | 2019-04-01 17:21 | PDOC.HOSPP ---
- Subjective Encounter Date: 04/01/19 Subjective: seen post amputation, has no complaints and states that her pain is well controlled. - Objective Vital Signs & Weight: Vital Signs (12 hours) Temp Pulse Resp BP Pulse Ox 04/01/19 15:43 99.0 F 75 15 123/67 95 04/01/19 12:30 97.3 F L 82 16 143/71 H 98 Weight Admit Weight 127 lb 14.4 oz Weight 121 lb 9.6 oz I&O: 03/31/19 04/01/19 04/02/19 06:59 06:59 06:59 Intake Total 1247 1680 Output Total 1700 3 Balance -453 4689 Result Diagrams: 04/01/19 04:41 04/01/19 04:41 Additional Labs: Accuchecks 04/01/19 04/01/19 04/01/19 16:58 13:23 05:22 POC Glucose 238 H 166 H 152 H 03/31/19 03/31/19 20:08 17:25 POC Glucose 243 H 242 H Hospitalist ROS - Medication Medications: Active Medications Generic Name Dose Route Start Last Admin Trade Name Freq PRN Reason Stop Dose Admin Hydrocodone Bitart/Acetaminophen 2 tab 03/28/19 17:26 04/01/19 05:06 [place] 5/325 PO 2 tab Q4H PRN Administration Moderate Pain (4-6) Aspirin 81 mg 03/27/19 09:00 04/01/19 10:02 Aspirin Chewable PO Not Given DAILY ROBERT Atorvastatin Calcium 40 mg 03/26/19 21:00 03/31/19 20:25 Lipitor PO 40 mg HS ROBERT Administration Clopidogrel Bisulfate 75 mg 03/26/19 09:00 04/01/19 10:02 Plavix PO Not Given DAILY ROBERT Famotidine 20 mg 03/26/19 09:00 04/01/19 10:02 Pepcid PO Not Given BID ROBERT Gabapentin 300 mg 03/26/19 09:00 04/01/19 15:42 Neurontin PO 300 mg TID ROBERT Administration Glyburide 5 mg 03/27/19 08:00 04/01/19 10:02 Diabeta PO Not Given QAM-WM ROBERT Hydralazine HCl 10 mg 03/27/19 12:06 03/31/19 23:50 Apresoline SLOW IVP 10 mg Q2H PRN Administration SBP Greater Than 170 Sodium Chloride 1,000 mls @ 100 mls/hr 03/31/19 00:01 04/01/19 13:42 Normal Saline 0.9% IV 1,000 mls .Q10H ROBERT Administration Insulin Human Lispro 0 units 03/26/19 07:32 03/31/19 21:40 Humalog SC 2 unit .BEDTIME SLIDING SC PRN Administration Bedtime Correctional Scale Labetalol HCl 20 mg 03/26/19 07:32 03/26/19 17:19 Normodyne SLOW IVP 20 mg Q4H PRN Administration SBP > 180 and HR >/= 70 Lisinopril 20 mg 03/31/19 09:00 04/01/19 10:03 Zestril PO Not Given DAILY ROBERT Metoprolol Succinate 50 mg 03/30/19 09:00 04/01/19 10:03 Toprol Xl PO Not Given DAILY ROBERT Morphine Sulfate 4 mg 03/26/19 18:02 03/31/19 23:50 Morphine SLOW IVP 4 mg Q4H PRN Administration Pain Sodium Chloride 10 ml 03/29/19 21:00 04/01/19 10:03 Flush - Normal Saline IVF Not Given Q12HR ROBERT Sodium Chloride 10 ml 03/29/19 12:37 03/30/19 06:03 Flush - Normal Saline IVF 10 ml PRN PRN Administration Saline Flush Zolpidem Tartrate 5 mg 03/26/19 07:32 03/26/19 20:15 Ambien PO 5 mg HSPRN PRN Administration Insomnia - Exam General Appearance: NAD, awake alert Eye: PERRL, anicteric sclera ENT: normocephalic atraumatic, no oropharyngeal lesions, moist mucosa Neck: supple, symmetric, no JVD, no thyromegaly, no lymphadenopathy, no carotid bruit Heart: RRR, no murmur, no gallops, no rubs, normal peripheral pulses Respiratory: CTAB, no wheezes, no rales, no ronchi, normal chest expansion, no tachypnea, normal percussion Gastrointestinal: soft, non-tender, non-distended, normal bowel sounds, no palpable masses, no hepatomegaly, no splenomegaly, no bruit Extremities: no cyanosis, no clubbing, no edema Hosp A/P (1) NSTEMI (non-ST elevated myocardial infarction) Code(s): I21.4 - NON-ST ELEVATION (NSTEMI) MYOCARDIAL INFARCTION Status: Acute (2) CAD (coronary artery disease) Code(s): I25.10 - ATHSCL HEART DISEASE OF [place] CORONARY ARTERY W/O ANG PCTRS Status: Chronic (3) Diabetes type 2, controlled Code(s): E11.9 - TYPE 2 DIABETES MELLITUS WITHOUT COMPLICATIONS Status: Chronic (4) Hypertension Code(s): I10 - ESSENTIAL (PRIMARY) HYPERTENSION Status: Chronic (5) PAD (peripheral artery disease) Code(s): I73.9 - PERIPHERAL VASCULAR DISEASE, UNSPECIFIED Status: Chronic (6) Atrial fibrillation Code(s): I48.91 - UNSPECIFIED ATRIAL FIBRILLATION Status: Resolved - Plan Neuro--CT head , MRI , carotid doppler all negative. Vascular--necrotic left toe--she is pot amputation and doing well. Cardiac---she underwent a cardiac cath awaiting Cardiology note. BP continues to be high, started Toprol two days ago, since HR is borderline low lisinopril was added---BP is better controlled but not perfect--will increase her lisnopril. Renal--stable lytes
[2019-04-01] MEDS ORDERED: Dextrose 50% Abboject 50 ML SYRINGE IVP PRN (19:29)
[2019-04-01] MEDS ORDERED: Dextrose 5% in Water 1,000 ML IV PRN (19:29)
[2019-04-01] MEDS: Atorvastatin Calcium 40 MG TAB PO SCH (20:39)
[2019-04-01] MEDS: Sulfameth/Trimethoprim DS 800-160mg TAB PO SCH (20:40)
[2019-04-01] MEDS: Amoxicillin/Potassium Clav 875 MG TAB PO SCH (20:40)
[2019-04-01] MEDS: hydrALAZINE 20 MG/ML VIAL SLOW IVP PRN (23:42)
[2019-04-02] MEDS: HYDROcodone/Acetaminophen 5/325 mg Tablet PO PRN ×5 (00:21→21:37)
[2019-04-02] MEDS: Morphine 4 MG/ML VIAL SLOW IVP PRN ×4 (02:16→20:14)
[2019-04-02] MEDS: hydrALAZINE 20 MG/ML VIAL SLOW IVP PRN (02:31)
[2019-04-02] MEDS ORDERED: Lorazepam 2 MG/ML VIAL SLOW IVP SCH (03:15)
[2019-04-02] MEDS ORDERED: Ketorolac Tromethamine 30 MG/ML VIAL IVP SCH ×3 (03:15→10:15)
[2019-04-02 06:08] LABS: #Basophils 0.1 thou/uL (0.0-0.2); #Eosinphils 0.2 thou/uL (0.0-0.7); #Monocytes 0.6 thou/uL (0.11-0.59); #Neutrophils 6.7 thou/uL (1.40-6.50); %Basophils 1.2 % (0.0-1.0); %Eosinophils 1.4 % (0.0-10.0); %Lymphocytes 27.9 % (21.0-51.0); %Monocytes 6.1 % (0.0-10.0); %Neutrophils 63.4 % (42.0-75.0); Hemoglobin 13.1 g/dL (12.0-16.0); Mean Corpuscular HGB CONC 32.3 g/dL (32.0-36.0); Mean Corpuscular Hemoglobin 30.5 pg (27.0-31.0); Mean Corpuscular Volume 94.6 fL (78.0-98.0); Mean Platelet Volume 8.3 fL (7.4-10.4); Platelet Count 264 thou/uL (130-400); RBC Distribution Width 14.2 % (11.5-14.5); Red Blood Cell (RBC) Count 4.29 mill/uL (4.20-5.40); White Blood Cell (WBC) Count 10.6 thou/uL (4.8-10.8)
[2019-04-02 06:31] LABS: AST (SGOT) 22 U/L (5-34); Anion Gap 12 mmol/L (10-20); Bilirubin, Total 0.3 mg/dL (0.2-1.2); Calcium 9.2 mg/dL (7.8-10.44); Carbon Dioxide 20 mmol/L (23-31); Chloride 108 mmol/L (98-107); Potassium 3.8 mmol/L (3.5-5.1); Protein, Total 6.8 g/dL (6.0-8.3); Sodium 136 mmol/L (136-145)
[2019-04-02 06:39] LABS: ALT (SGPT) 34 U/L (8-55); Albumin 3.6 g/dL (3.4-4.8); Alkaline Phosphatase 105 U/L (40-150); BUN (Urea Nitrogen) 7 mg/dL (9.8-20.1); Calc. Creatinine Clearance 81 mL/min (70-130); Estimated GFR-MDRD Greater than 90; Globulin 3.2 g/dL (2.4-3.5); Glucose 199 mg/dL (80-115)
[2019-04-02] MEDS: Amoxicillin/Potassium Clav 875 MG TAB PO SCH ×2 (08:51→20:15)
[2019-04-02] MEDS: Clopidogrel Bisulfate 75 MG TAB PO SCH (08:51)
[2019-04-02] MEDS: Aspirin Chewable 81 MG TAB PO SCH (08:52)
[2019-04-02] MEDS: Lisinopril 20 MG TAB PO SCH (08:52)
[2019-04-02] MEDS: glyBURIDE 5 MG TAB PO SCH (08:52)
[2019-04-02] MEDS: Sulfameth/Trimethoprim DS 800-160mg TAB PO SCH ×2 (08:52→20:15)
[2019-04-02] MEDS: Gabapentin 300 MG CAP PO SCH ×3 (08:52→20:15)
[2019-04-02] MEDS: Famotidine 20 MG TAB PO SCH ×2 (08:52→20:15)
[2019-04-02] MEDS ORDERED: Morphine 2 MG/ML SYRINGE SLOW IVP SCH (10:15)
[2019-04-02] MEDS: HumaLOG 300 UNITS/3 ML VIAL SC PRN ×2 (10:38→10:46)
[2019-04-02] MEDS: Sodium Chloride 0.9% 1,000 ML IV SCH (11:27)
[2019-04-02] MEDS: Atorvastatin Calcium 40 MG TAB PO SCH (20:15)
--- NOTE | 2019-04-02 23:28 | EKG ---
Test Reason : Blood Pressure : / mmHG Vent. Rate : 080 BPM Atrial Rate : 080 BPM P-R Int : 128 ms QRS Dur : 100 ms QT Int : 386 ms P-R-T Axes : 085 064 072 degrees QTc Int : 445 ms Normal sinus rhythm Nonspecific T wave abnormality Abnormal ECG Confirmed by DIPTI FRAGA M.D. ([id number]), scientific publications editor GABBY ROBLES ([id number] on 04/02/2019 11:27:35 PM Referred By: Confirmed By:DIPTI FRAGA M.D.
--- NOTE | 2019-04-02 23:28 | EKG ---
Test Reason : CP
[2019-04-03] MEDS: Sodium Chloride 0.9% 1,000 ML IV SCH ×2 (01:10→09:19)
[2019-04-03] MEDS: HYDROcodone/Acetaminophen 5/325 mg Tablet PO PRN ×5 (01:43→20:31)
[2019-04-03] MEDS: Morphine 4 MG/ML VIAL SLOW IVP PRN ×3 (02:41→11:18)
[2019-04-03] MEDS ORDERED: Ketorolac Tromethamine 30 MG/ML VIAL IVP SCH (04:15)
[2019-04-03] MEDS: Labetalol HCl 100 MG/20 ML VIAL SLOW IVP PRN (04:34)
[2019-04-03] MEDS: hydrALAZINE 20 MG/ML VIAL SLOW IVP PRN (05:47)
--- NOTE | 2019-04-03 07:47 | PDOC.HOSPP ---
- Subjective Encounter Date: 04/02/19 Subjective: Complains of pain in her amputation site. Says it is down to an 8/10 right now. Wants something stronger than morphine. - Objective Vital Signs & Weight: Vital Signs (12 hours) Temp Pulse Resp BP BP BP Pulse Ox 04/03/19 07:24 99.1 F 91 16 134/66 96 04/03/19 05:47 82 183/88 H 04/03/19 05:23 82 183/88 H 04/03/19 04:34 84 206/100 H 04/03/19 04:00 99.0 F 84 18 204/100 H 95 04/02/19 20:00 99.0 F 101 H 16 144/70 H 99 Weight Admit Weight 127 lb 14.4 oz Weight 121 lb 9.6 oz I&O: 04/02/19 04/03/19 04/04/19 06:59 06:59 06:59 Intake Total 2160 3240 Output Total 1600 300 Balance 560 2940 Result Diagrams: 04/02/19 05:54 04/02/19 05:54 Additional Labs: Accuchecks 04/03/19 04/02/19 04/02/19 05:43 21:11 16:33 POC Glucose 169 H 192 H 128 H 04/02/19 10:39 POC Glucose 371 H Hospitalist ROS - Medication Medications: Active Medications Generic Name Dose Route Start Last Admin Trade Name Freq PRN Reason Stop Dose Admin Hydrocodone Bitart/Acetaminophen 2 tab 03/28/19 17:26 04/03/19 05:47 C[place] 5/325 PO 2 tab Q4H PRN Administration Moderate Pain (4-6) Amoxicillin/Clavulanate Potassium 875 mg 04/01/19 21:00 04/02/19 20:15 Augmentin PO 875 mg Q12HR ROBERT Administration Aspirin 81 mg 03/27/19 09:00 04/02/19 08:52 Aspirin Chewable PO 81 mg DAILY ROBERT Administration Atorvastatin Calcium 40 mg 03/26/19 21:00 04/02/19 20:15 Lipitor PO 40 mg HS ROBERT Administration Clopidogrel Bisulfate 75 mg 03/26/19 09:00 04/02/19 08:51 Plavix PO 75 mg DAILY ROBERT Administration Famotidine 20 mg 03/26/19 09:00 04/02/19 20:15 Pepcid PO 20 mg BID ROBERT Administration Gabapentin 300 mg 03/26/19 09:00 04/02/19 20:15 Neurontin PO 300 mg TID ROBERT Administration Glyburide 5 mg 03/27/19 08:00 04/02/19 08:52 Diabeta PO 5 mg QAM-WM ROBERT Administration Hydralazine HCl 10 mg 03/27/19 12:06 04/03/19 05:47 Apresoline SLOW IVP 10 mg Q2H PRN Administration SBP Greater Than 170 Sodium Chloride 1,000 mls @ 100 mls/hr 03/31/19 00:01 04/03/19 01:10 Normal Saline 0.9% IV 1,000 mls .Q10H ROBERT Administration Insulin Human Lispro 0 units 03/26/19 07:32 03/31/19 21:40 Humalog SC 2 unit .BEDTIME SLIDING SC PRN Administration Bedtime Correctional Scale Insulin Human Lispro 0 units 04/01/19 19:29 04/02/19 10:46 Humalog SC 10 unit .MODERATE SLIDING SC PRN Administration MODERATE SLIDING SCALE Protocol Labetalol HCl 20 mg 03/26/19 07:32 04/03/19 04:34 Normodyne SLOW IVP 20 mg Q4H PRN Administration SBP > 180 and HR >/= 70 Lisinopril 40 mg 04/02/19 09:00 04/02/19 08:52 Zestril PO 40 mg DAILY ROBERT Administration Metoprolol Succinate 50 mg 03/30/19 09:00 04/02/19 08:50 Toprol Xl PO 50 mg DAILY ROBERT Administration Morphine Sulfate 4 mg 03/26/19 18:02 04/03/19 06:45 Morphine SLOW IVP 4 mg Q4H PRN Administration Pain Sodium Chloride 10 ml 03/29/19 21:00 04/02/19 20:15 Flush - Normal Saline IVF 10 ml Q12HR ROBERT Administration Sodium Chloride 10 ml 03/29/19 12:37 03/30/19 06:03 Flush - Normal Saline IVF 10 ml PRN PRN Administration Saline Flush Trimethoprim/Sulfamethoxazole 1 tab 04/01/19 21:00 04/02/19 20:15 Bactrim Ds PO 1 tab BID ROBERT Administration Zolpidem Tartrate 5 mg 03/26/19 07:32 03/26/19 20:15 Ambien PO 5 mg HSPRN PRN Administration Insomnia - Exam General Appearance: NAD, awake alert Heart: RRR, no murmur Respiratory: CTAB, no wheezes, no rales Gastrointestinal: soft, non-tender, non-distended Extremeties - other findings: Surgical site looks good. Musculoskeletal: normal tone Psychiatric: normal affect, normal behavior, A&O x 3 Psychiatric - other findings: Displays no evidence of pain in her demeanor. Hosp A/P (1) Status post amputation of toe Code(s): Z89.429 - ACQUIRED ABSENCE OF OTHER TOE(S), UNSPECIFIED SIDE Status: Acute (2) NSTEMI (non-ST elevated myocardial infarction) Code(s): I21.4 - NON-ST ELEVATION (NSTEMI) MYOCARDIAL INFARCTION Status: Acute (3) CAD (coronary artery disease) Code(s): I25.10 - ATHSCL HEART DISEASE OF [place] CORONARY ARTERY W/O ANG PCTRS Status: Chronic (4) Hypertension Code(s): I10 - ESSENTIAL (PRIMARY) HYPERTENSION Status: Chronic (5) PAD (peripheral artery disease) Code(s): I73.9 - PERIPHERAL VASCULAR DISEASE, UNSPECIFIED Status: Chronic (6) Tobacco abuse Code(s): Z72.0 - TOBACCO USE Status: Chronic (7) Atrial fibrillation Code(s): I48.91 - UNSPECIFIED ATRIAL FIBRILLATION Status: Resolved - Plan Ambulate at bit. Give her another day with the IV pain meds (morphine, Toradol) along with the po 's. Will DC the IV tomorrow. Cards following.
[2019-04-03] MEDS: HumaLOG 300 UNITS/3 ML VIAL SC PRN ×3 (08:36→21:06)
[2019-04-03] MEDS: glyBURIDE 5 MG TAB PO SCH (08:42)
[2019-04-03] MEDS: Amoxicillin/Potassium Clav 875 MG TAB PO SCH ×2 (08:42→20:31)
[2019-04-03] MEDS: Sulfameth/Trimethoprim DS 800-160mg TAB PO SCH ×2 (08:43→20:31)
[2019-04-03] MEDS: Gabapentin 300 MG CAP PO SCH ×3 (08:43→20:31)
[2019-04-03] MEDS: Famotidine 20 MG TAB PO SCH ×2 (08:43→20:31)
[2019-04-03] MEDS: Clopidogrel Bisulfate 75 MG TAB PO SCH (08:43)
[2019-04-03] MEDS: Lisinopril 20 MG TAB PO SCH (08:43)
[2019-04-03] MEDS: Aspirin Chewable 81 MG TAB PO SCH (08:44)
--- NOTE | 2019-04-03 14:26 | PDOC.HOSPP ---
- Subjective Encounter Date: 04/03/19 Encounter Time: 14:24 Subjective: Says she is still having pain. She has her post-op walking shoe. Would like to consider some home health at discharge. - Objective Vital Signs & Weight: Vital Signs (12 hours) Temp Pulse Pulse Pulse Resp BP BP 04/03/19 11:29 99.1 F 78 12 04/03/19 09:32 72 78 130/64 04/03/19 08:42 04/03/19 07:24 99.1 F 91 16 04/03/19 05:47 82 183/88 H 04/03/19 05:23 82 04/03/19 04:34 84 206/100 H 04/03/19 04:00 99.0 F 84 18 BP BP BP Pulse Ox 04/03/19 11:29 121/69 96 04/03/19 09:32 116/55 L 04/03/19 08:42 96 04/03/19 07:24 134/66 96 04/03/19 05:47 04/03/19 05:23 183/88 H 04/03/19 04:34 04/03/19 04:00 204/100 H 95 Weight Admit Weight 127 lb 14.4 oz Weight 121 lb 9.6 oz I&O: 04/02/19 04/03/19 04/04/19 06:59 06:59 06:59 Intake Total 2160 3240 Output Total 1600 300 Balance 560 2940 Result Diagrams: 04/02/19 05:54 04/02/19 05:54 Additional Labs: Accuchecks 04/03/19 04/03/19 04/02/19 11:17 05:43 21:11 POC Glucose 183 H 169 H 192 H 04/02/19 16:33 POC Glucose 128 H Hospitalist ROS - Medication Medications: Active Medications Generic Name Dose Route Start Last Admin Trade Name Freq PRN Reason Stop Dose Admin Hydrocodone Bitart/Acetaminophen 2 tab 03/28/19 17:26 04/03/19 11:17 [place] 5/325 PO 2 tab Q4H PRN Administration Moderate Pain (4-6) Amoxicillin/Clavulanate Potassium 875 mg 04/01/19 21:00 04/03/19 08:42 Augmentin PO 875 mg Q12HR ROBERT Administration Aspirin 81 mg 03/27/19 09:00 04/03/19 08:44 Aspirin Chewable PO 81 mg DAILY ROBERT Administration Atorvastatin Calcium 40 mg 03/26/19 21:00 04/02/19 20:15 Lipitor PO 40 mg HS ROBERT Administration Clopidogrel Bisulfate 75 mg 03/26/19 09:00 04/03/19 08:43 Plavix PO 75 mg DAILY ROBERT Administration Famotidine 20 mg 03/26/19 09:00 04/03/19 08:43 Pepcid PO 20 mg BID ROBERT Administration Gabapentin 300 mg 03/26/19 09:00 04/03/19 08:43 Neurontin PO 300 mg TID ROBERT Administration Glyburide 5 mg 03/27/19 08:00 04/03/19 08:42 Diabeta PO 5 mg QAM-WM ROBERT Administration Hydralazine HCl 10 mg 03/27/19 12:06 04/03/19 05:47 Apresoline SLOW IVP 10 mg Q2H PRN Administration SBP Greater Than 170 Sodium Chloride 1,000 mls @ 100 mls/hr 03/31/19 00:01 04/03/19 09:19 Normal Saline 0.9% IV Not Given .Q10H ROBERT Insulin Human Lispro 0 units 03/26/19 07:32 03/31/19 21:40 Humalog SC 2 unit .BEDTIME SLIDING SC PRN Administration Bedtime Correctional Scale Insulin Human Lispro 0 units 04/01/19 19:29 04/03/19 11:18 Humalog SC 2 unit .MODERATE SLIDING SC PRN Administration MODERATE SLIDING SCALE Protocol Labetalol HCl 20 mg 03/26/19 07:32 04/03/19 04:34 Normodyne SLOW IVP 20 mg Q4H PRN Administration SBP > 180 and HR >/= 70 Lisinopril 40 mg 04/02/19 09:00 04/03/19 08:43 Zestril PO 40 mg DAILY ROBERT Administration Metoprolol Succinate 50 mg 03/30/19 09:00 04/03/19 08:43 Toprol Xl PO 50 mg DAILY ROBERT Administration Sodium Chloride 10 ml 03/29/19 21:00 04/03/19 08:44 Flush - Normal Saline IVF Not Given Q12HR ROBERT Sodium Chloride 10 ml 03/29/19 12:37 03/30/19 06:03 Flush - Normal Saline IVF 10 ml PRN PRN Administration Saline Flush Trimethoprim/Sulfamethoxazole 1 tab 04/01/19 21:00 04/03/19 08:43 Bactrim Ds PO 1 tab BID ROBERT Administration Zolpidem Tartrate 5 mg 03/26/19 07:32 03/26/19 20:15 Ambien PO 5 mg HSPRN PRN Administration Insomnia - Exam General Appearance: NAD Neck: supple, symmetric, no JVD, no thyromegaly, no lymphadenopathy, no carotid bruit Heart: RRR, no murmur, no gallops, no rubs, normal peripheral pulses Respiratory: CTAB, no wheezes, no rales, no ronchi, normal chest expansion, no tachypnea, normal percussion Gastrointestinal: soft, non-tender, non-distended, normal bowel sounds Extremities: no cyanosis, no edema Extremeties - other findings: Surgical site dressed. Minimal drainage. Hosp A/P (1) Status post amputation of toe Code(s): Z89.429 - ACQUIRED ABSENCE OF OTHER TOE(S), UNSPECIFIED SIDE Status: Acute (2) NSTEMI (non-ST elevated myocardial infarction) Code(s): I21.4 - NON-ST ELEVATION (NSTEMI) MYOCARDIAL INFARCTION Status: Acute (3) CAD (coronary artery disease) Code(s): I25.10 - ATHSCL HEART DISEASE OF [place] CORONARY ARTERY W/O ANG PCTRS Status: Chronic (4) Hypertension Code(s): I10 - ESSENTIAL (PRIMARY) HYPERTENSION Status: Chronic (5) PAD (peripheral artery disease) Code(s): I73.9 - PERIPHERAL VASCULAR DISEASE, UNSPECIFIED Status: Chronic (6) Tobacco abuse Code(s): Z72.0 - TOBACCO USE Status: Chronic (7) Atrial fibrillation Code(s): I48.91 - UNSPECIFIED ATRIAL FIBRILLATION Status: Resolved - Plan Ambulate. Stop the IV meds. Continue po's. Consult Case Management. Cards following. Will discuss with Dr. Arciniega in am. Anticipate discharge in am.
[2019-04-03] MEDS: Atorvastatin Calcium 40 MG TAB PO SCH (20:31)
[2019-04-04] MEDS: HYDROcodone/Acetaminophen 5/325 mg Tablet PO PRN ×6 (00:29→20:45)
[2019-04-04] MEDS: Clopidogrel Bisulfate 75 MG TAB PO SCH (08:30)
[2019-04-04] MEDS: glyBURIDE 5 MG TAB PO SCH (08:30)
[2019-04-04] MEDS: Lisinopril 20 MG TAB PO SCH (08:31)
[2019-04-04] MEDS: Sulfameth/Trimethoprim DS 800-160mg TAB PO SCH ×2 (08:31→20:46)
[2019-04-04] MEDS: Amoxicillin/Potassium Clav 875 MG TAB PO SCH ×2 (08:31→20:46)
[2019-04-04] MEDS: Famotidine 20 MG TAB PO SCH ×2 (08:31→20:45)
[2019-04-04] MEDS: Aspirin Chewable 81 MG TAB PO SCH (08:31)
[2019-04-04] MEDS: Gabapentin 300 MG CAP PO SCH ×2 (08:31→15:29)
--- NOTE | 2019-04-04 10:17 | OP ---
DATE OF PROCEDURE: 04/01/2019 PREOPERATIVE DIAGNOSES: Arteriosclerosis with rest pain and gangrene, left great toe and diabetes. POSTOPERATIVE DIAGNOSES: Arteriosclerosis with rest pain and gangrene, left great toe and diabetes. PROCEDURES PERFORMED: Amputation of left great toe through the proximal phalanx with primary closure. Note, the patient had a cardiac catheterization yesterday noting coronary artery disease. Plan is to treat this medically without necessary intervention. Arteriography today by Dr. Arciniega with LEATHER STRETCHER and stenting, recanalizing this superficial femoral artery with runoff peroneal artery to the foot. ANESTHESIA: Ankle block, TIVA. DESCRIPTION OF PROCEDURE: The patient was taken to the operating room, where under TIVA anesthesia, the left lower extremity was prepared and draped in routine fashion. Incision was made for amputation of left great toe, amputated necrotic tissue conserving skin where appropriate, carried down to skin and subcutaneous tissue, transecting the proximal phalanx of the great toe with a bone cutter resecting it proximally with rongeurs and wound irrigated. Connective tissue debrided. There was some bleeding. Wound irrigated. Subcutaneous tissue was approximated with 3-0 Monocryl, skin with 4-0 Prolene and sterile dressings were applied. The patient tolerated the procedure well. I have ordered Augmentin and Bactrim p.o. and she can be on this for 10 days postoperatively. She can follow up in my office in 2 weeks. She will remove her dressing in 72 hours and daily wash the wound with soap and water, apply antibiotic ointment and Band-Aid. Job ID: [id number]
--- NOTE | 2019-04-04 10:19 | OP ---
DATE OF PROCEDURE: 04/01/2019 PREOPERATIVE DIAGNOSIS: Nonhealing ulcer. POSTOPERATIVE DIAGNOSIS: Severe PVD. PROCEDURES PERFORMED: 1. Aortogram. 2. Bilateral aortofemoral runoff. 3. Successful percutaneous transluminal angioplasty to the popliteal artery. 4. Successful stent placement after suboptimal results to the left peroneal artery. COMPLICATIONS: None. ESTIMATED BLOOD LOSS: Less than 20 mL. DESCRIPTION OF PROCEDURE: The patient was draped and prepped in sterile fashion. Access was obtained in the right femoral artery under ultrasound guidance. A Contra catheter was placed successfully into the aorta. Images performed. This was then placed in the contralateral segment successfully with images performed. FINDINGS: Aorta has no significant stenosis or aneurysm. Right lower extremity-the common iliac, external iliac artery, and common femoral artery have no significant stenosis. There appears to be calcium present within the right common femoral artery with 50% stenosis. The SFA appears to be occluded in the proximal mid section. Left lower extremity-the common iliac, external iliac and common femoral artery have no significant disease. The SFA has multiple lesions estimated at 50% within the SFA. At the SFA popliteal junction, there was 100% occlusion with reconstitution in the mid popliteal artery. There appears to be a lesion present within the ostium of the peroneal artery. INTERVENTIONAL PROCEDURE: The 5-English sheath was exchanged for a 6-English Destination sheath. This was placed successfully in contralateral section. Heparin was used for anticoagulation. A Glidewire was used and placed into the distal SFA and with support from a 4 x 40 mm Mesa balloon catheter across the lesion successfully. This was confirmed. Multiple inflations then ensued with the 4.0 x 40 mm Mesa followed by a 5 x 150 mm Mesa, followed by a 3 x 150 mm Mesa balloon catheter. This was performed multiple times. There appeared to be suboptimal result noted at the ostium of the peroneal artery. Successful stenting with a 3 x 20 mm Synergy stent was done within the area of concern. There appeared to be appropriate blood flow present after complete occlusion at the beginning of the case. Protamine was given at the end of the study. Job ID: [id number]
--- NOTE | 2019-04-04 11:49 | OP ---
DATE OF PROCEDURE: 03/26/2019 PREOPERATIVE DIAGNOSES: Diabetic ulceration with arteriosclerotic peripheral arterial disease, superficial femoral artery, popliteal disease with left great toe gangrene with rest pain, great toe and distal foot. POSTOPERATIVE DIAGNOSES: Diabetic ulceration with arteriosclerotic peripheral arterial disease, superficial femoral artery, popliteal disease with left great toe gangrene with rest pain, great toe and distal foot. Note, Dr. Arciniega performed arteriography runoff, SAMPLE PREPARATION SUPERVISOR stenting to optimize circulation, peroneal artery runoff to the foot. PROCEDURE PERFORMED: Amputation of left great toe to the proximal phalanx with primary closure. ANESTHESIA: Ankle block, TIVA. DESCRIPTION OF PROCEDURE: The patient was taken to the operating room, where the left lower extremity was prepared with ChloraPrep and draped in routine fashion. Amputation of the left great toe was made, excising the gangrenous tissue, preserving skin were able, transecting the proximal phalanx with a bone cutter, resecting it approximately with a rongeur, debriding connective tissue proximally. There was slight bleeding in the subcutaneous tissue. Wound appeared to be clean. It was irrigated. Subcutaneous tissue was approximated with 3-0 Monocryl, skin with 4-0 Prolene. Sterile dressing applied. The patient tolerated the procedure well. Job ID: [id number]
[2019-04-04] MEDS: Labetalol HCl 100 MG/20 ML VIAL SLOW IVP PRN (11:58)
[2019-04-04] MEDS: HumaLOG 300 UNITS/3 ML VIAL SC PRN ×2 (12:08→18:08)
--- NOTE | 2019-04-04 16:44 | EKG ---
Test Reason : PREOP Blood Pressure : / mmHG Vent. Rate : 096 BPM Atrial Rate : 096 BPM P-R Int : 126 ms QRS Dur : 080 ms QT Int : 374 ms P-R-T Axes : 068 067 073 degrees QTc Int : 472 ms Poor data quality, interpretation may be adversely affected Normal sinus rhythm Minimal voltage criteria for LVH, may be normal variant Borderline ECG Confirmed by MICHAEL BURNS ([id number]) on 04/04/2019 4:43:58 PM Referred By: JOHN Confirmed By:MICHAEL BURNS
[2019-04-04] MEDS ORDERED: HYDROcodone/Acetaminophen 10/325 mg Tablet PO PRN (17:49)
--- NOTE | 2019-04-04 18:12 | PRG ---
DATE OF SERVICE: 04/04/2019 SUBJECTIVE: Pavithra Lou is doing well today. Her parenteral narcotics have been discontinued. She is taking [place] 10 one tablet every 4 to 6 hours. Gabapentin has helped with her pain control. Her pain is in the amputated toe stump and not in the foot anymore. Preoperatively, her pain involved her foot up to her ankle, but after interventional revascularization, her foot pain is much improved. I think most of her pain is due to the surgical wound and pre-existing ischemic rest pain that will take a while to improve. I agree with starting gabapentin along with her [place]. Her wound looks good. I think she can be discharged home anytime. Wash the wound with soap and water and shower bath daily. Place the antibiotic ointment and Band-Aid. She can see me in my office in 2 weeks. Weight bear as tolerated, postoperative shoe use when out of bed. At this point, I will see her as needed. Please call if necessary. I will see her in the office in 2 weeks. We would continue Augmentin for 7 days as an outpatient and discontinue. Job ID: [id number]
--- NOTE | 2019-04-04 19:35 | PRG ---
DATE OF SERVICE: 04/04/2019 SUBJECTIVE: Ms. Lou continues to complain of pain to her foot. No other complaints present. OBJECTIVE: VITAL SIGNS: Blood pressure 158/77, pulse 80, temperature 98.5. LUNGS: Clear to auscultation. HEART: Regular rate and rhythm. ABDOMEN: Soft, nontender, and nondistended. EXTREMITIES: Recent amputation to the left toe. PERTINENT LABORATORY DATA: Hemoglobin 13.1. Creatinine 0.63. IMPRESSION: 1. Coronary artery disease. 2. Status post stent placement. 3. Brief episode of atrial fibrillation. 4. Severe peripheral vascular disease, status post amputation. RECOMMENDATIONS: Certainly difficult case from a CV and peripheral vascular disease standpoint. Ms. Lou continues to complain of pain. After revascularization and stent placement to the peroneal artery, there was no flow present in the anterior tibial and posterior tibial artery. Her pain appears to be out of proportion to the flow. From an atrial fibrillation standpoint, I would recommend a 3-week event recorder to assess for any further dysrhythmias. Her symptoms may have been related to recent necrosis to her toe. Job ID: [id number]
[2019-04-04] MEDS: Gabapentin 400 MG CAP PO SCH (20:45)
[2019-04-04] MEDS: Atorvastatin Calcium 40 MG TAB PO SCH (20:46)
[2019-04-05] MEDS: HYDROcodone/Acetaminophen 5/325 mg Tablet PO PRN ×4 (00:40→13:32)
[2019-04-05 04:44] VITALS: BMI 21.8
[2019-04-05] MEDS ORDERED: metFORMIN 500 MG TAB PO SCH (08:00)
[2019-04-05] MEDS ORDERED: Clopidogrel Bisulfate 75 MG TAB PO SCH (09:00)
[2019-04-05] MEDS ORDERED: Aspirin 81 mg Enteric Coated Tablet PO SCH (09:00)
[2019-04-05] MEDS ORDERED: Triple Antibiotic Ointment 30 GM TUBE TOP SCH (09:00)
[2019-04-05] MEDS ORDERED: glipiZIDE 5 MG TAB PO SCH (09:00)
[2019-04-05] MEDS: Amoxicillin/Potassium Clav 875 MG TAB PO SCH (09:25)
[2019-04-05] MEDS: Famotidine 20 MG TAB PO SCH (09:25)
[2019-04-05] MEDS: Lisinopril 20 MG TAB PO SCH (09:26)
[2019-04-05] MEDS: Gabapentin 400 MG CAP PO SCH ×2 (09:26→15:33)
[2019-04-05] MEDS: Sulfameth/Trimethoprim DS 800-160mg TAB PO SCH (09:26)
[2019-04-05] MEDS: HumaLOG 300 UNITS/3 ML VIAL SC PRN (12:58)
--- NOTE | 2019-04-05 14:07 | PRG ---
DATE OF SERVICE: 04/05/2019 SUBJECTIVE: Ms. Lou continues to complain of leg pain, although it is better. Rhythm remains stable. No current complaints. OBJECTIVE: GENERAL: Patient is a pleasant 63-year-old who is in no acute distress. The patient appears their stated age. VITAL SIGNS: Blood pressure 172/83, pulse 83, and temperature 99.3. NEUROLOGIC: The patient is alert and oriented x3 with no focal neurologic deficits. HEENT: Sclerae without icterus. Mouth has moist mucous membranes with normal pallor. NECK: No JVD. Carotid upstroke brisk. No bruits bilaterally. LUNGS: Clear to auscultation with unlabored respirations. BACK: No scoliosis or kyphosis. CARDIAC: Regular rate and rhythm with normal S1 and S2. No S3 or S4 noted. No significant rubs, murmurs, thrills, or gallops noted throughout the precordium. PMI is not displaced. There is no parasternal heave. ABDOMEN: Soft, nontender, nondistended. No peritoneal signs present. No hepatosplenomegaly. No abnormal striae. EXTREMITIES: 2+ femoral and 2+ dorsalis pedis pulses. No cyanosis, clubbing, or edema. SKIN: No gross abnormalities. PERTINENT LABORATORY DATA: Hemoglobin 13.1. Creatinine 0.63. IMPRESSION: 1. Severe peripheral vascular disease. 2. Transient atrial fibrillation. 3. Coronary artery disease. 4. Status post stent placement. RECOMMENDATIONS: At this point, given her atrial fibrillation was transient and spontaneous converted, I would recommend 3-week outpatient event recorder. The patient's primary lathing supervisor is Dr. Wilson Mccray. We will need to address as an outpatient. Otherwise, from my standpoint, I have no further recommendations. Job ID: [id number]
[2019-04-05 15:37] VITALS: TEMP 98.4
[2019-04-05] MEDS: hydrALAZINE 20 MG/ML VIAL SLOW IVP PRN (15:41)
[2019-04-05 16:22] VITALS: BP 169/81
--- NOTE | 2019-04-05 17:12 | PDOC.HOSPP ---
- Subjective Encounter Date: 04/04/19 Subjective: Continue to report pain in the foot. Does not feel like the pain meds will be adequate. - Objective Vital Signs & Weight: Vital Signs (12 hours) Temp Pulse Pulse Pulse Resp BP BP 04/05/19 16:21 04/05/19 15:34 98.4 F 70 16 04/05/19 12:53 98.6 F 73 18 04/05/19 11:09 82 80 177/90 H 172/88 H 04/05/19 09:16 99.3 F 82 18 04/05/19 08:00 BP BP Pulse Ox Pulse Ox Pulse Ox 04/05/19 16:21 169/81 H 04/05/19 15:34 178/94 H 98 04/05/19 12:53 173/86 H 98 04/05/19 11:09 95 97 04/05/19 09:16 172/83 H 99 04/05/19 08:00 99 Weight Admit Weight 127 lb 14.4 oz Weight 131 lb 3.2 oz I&O: 04/04/19 04/05/19 04/06/19 06:59 06:59 06:59 Intake Total 3220 1884 Output Total 2250 1750 Balance 970 134 Result Diagrams: 04/02/19 05:54 04/02/19 05:54 Additional Labs: Accuchecks 04/05/19 04/05/19 04/04/19 12:38 05:00 20:54 POC Glucose 206 H 155 H 124 H 04/04/19 17:04 POC Glucose 298 H - Exam General Appearance: NAD, awake alert Heart: RRR, no murmur, no gallops, no rubs, normal peripheral pulses Respiratory: CTAB, no wheezes, no rales, no ronchi, normal chest expansion, no tachypnea, normal percussion Gastrointestinal: soft, non-tender, non-distended, normal bowel sounds, no palpable masses, no hepatomegaly, no splenomegaly, no bruit Extremeties - other findings: Left foot warm. Musculoskeletal: normal tone, normal strength, no muscle wasting Psychiatric: normal affect, normal behavior, A&O x 3 Hosp A/P (1) Status post amputation of toe Code(s): Z89.429 - ACQUIRED ABSENCE OF OTHER TOE(S), UNSPECIFIED SIDE Status: Acute (2) NSTEMI (non-ST elevated myocardial infarction) Code(s): I21.4 - NON-ST ELEVATION (NSTEMI) MYOCARDIAL INFARCTION Status: Acute (3) CAD (coronary artery disease) Code(s): I25.10 - ATHSCL HEART DISEASE OF [place] CORONARY ARTERY W/O ANG PCTRS Status: Chronic (4) Hypertension Code(s): I10 - ESSENTIAL (PRIMARY) HYPERTENSION Status: Chronic (5) PAD (peripheral artery disease) Code(s): I73.9 - PERIPHERAL VASCULAR DISEASE, UNSPECIFIED Status: Chronic (6) Tobacco abuse Code(s): Z72.0 - TOBACCO USE Status: Chronic (7) Atrial fibrillation Code(s): I48.91 - UNSPECIFIED ATRIAL FIBRILLATION Status: Resolved - Plan Ambulate. PO pain meds. Cards following. Discussed with Dr. Arciniega. Patient has severe PAD and is relying on peroneal stent. Discussed with Dr. Garcia. He will resume the patient's Gabapentin, but the foot looks ok.
--- NOTE | 2019-04-06 02:37 | DIS ---
DATE OF ADMISSION: 03/26/2019 DATE OF DISCHARGE: 04/05/2019 DISCHARGE DIAGNOSES: 1. Eqd-HN-mcfsonigs myocardial infarction. 2. Chest pain. 3. Atrial fibrillation with rapid ventricular response. 4. Hypokalemia. 5. Hypomagnesemia. 6. Diastolic dysfunction. 7. Diabetes mellitus. 8. Hyperlipidemia. 9. Peripheral neuropathy. 10. Hypertension. 11. Peripheral arterial disease. 12. Tobacco abuse. 13. Left-sided weakness. HISTORY OF PRESENT ILLNESS: This patient is a 63-year-old female who presented to the hospital with the primary complaint of chest pain. The patient was seen in the emergency department where she was noted to have atrial fibrillation with a rapid ventricular response. She was started on amiodarone drip and subsequently converted to normal sinus rhythm. Had followup from Cardiology and ultimately, did not have significant recurrence in the hospital. Recommendation was that she follow up with Cardiology as an outpatient in order to consider an outpatient deputy clerk. She was initially treated with general anticoagulation, but ultimately this was discontinued in light of her subsequent surgeries. The patient's chest pain was evaluated with serial enzymes, which did increase from 0.011 up to 1.608. Again, she was on anticoagulation. Cardiology followed her for this and she underwent catheterization without significant intervention performed. She also had echocardiogram revealing an ejection fraction of 60% to 65%, with diastolic dysfunction. The patient also reported some peripheral vascular disease symptoms and pain in her left great toe. With that, she was evaluated by Surgery who felt the patient's toe was gangrenous and will likely require amputation. She was seen by Dr. Potter who deferred intervention to Dr. Arciniega who had seen the patient previously and recommended a combined study with her initial heart catheterization. At that time, the patient did have an aortogram and had successful percutaneous transluminal angioplasty to the popliteal artery and a successful stent placement after suboptimal results to the left peroneal artery. Subsequently, the patient underwent left great toe amputation. She had significant postoperative pain, which may be related to her peripheral neuropathy as the patient had not been on her usual gabapentin or could be related to ongoing pain due to ischemic disease. She was treated with IV then oral pain medications and ultimately, placed back on her gabapentin as well. The patient had some left-sided weakness that had been present several days prior to her admission, prior to undergoing any other intervention. She had workup included a CT of the brain, which was negative. MRI of the brain which was negative and carotid Dopplers, which failed to reveal any significant occlusive disease. The patient's blood sugars remained relatively well-controlled and blood pressure remained borderline high throughout her hospitalization. Ultimately once the patient's chest pain had thoroughly been investigated and treated medically, her peripheral vascular disease thoroughly treated and addressed, her atrial fibrillation had been only transient, and her chronic medical conditions stable ; she was felt to be appropriate for discharge to home. PHYSICAL EXAMINATION: VITAL SIGNS: On the day of discharge, temperature was 98.4, pulse 70, respirations 16, O2 saturation 98% on room air, BP 178/94. GENERAL: She was awake, alert, oriented, pleasant, and cooperative. HEART: Regular rate and rhythm without murmurs. LUNGS: Clear bilaterally. ABDOMEN: Soft, nontender. EXTREMITIES: Left great toe was appropriately dressed with postsurgical dressing without significant drainage. Her foot was otherwise warm and dry. DISPOSITION: The patient is discharged to home. She is to remain on a heart healthy diabetic diet. ACTIVITY: As tolerated. She is to remain in the orthotic walking shoe. MEDICATION: Will include: 1. Nitroglycerin 0.4 mg sublingual q.5 minutes p.r.n. 2. Augmentin 875 one p.o. b.i.d. 3. Atorvastatin 40 mg at bedtime. 4. Calcium 1000 mg q.4 hours. 5. Plavix 75 mg daily. 6. [place] 10/325 one q.6 hours p.r.n. 7. Zestril 40 mg p.o. daily. 8. Metoprolol 50 mg p.o. daily. 9. Triple antibiotic ointment to the toe wound daily. 10. She will continue with metformin 1000 mg daily. 11. Glipizide 5 mg daily. 12. Gabapentin 1200 mg t.i.d. 13. Aspirin 81 mg daily. FOLLOWUP: She is to follow up with cardiac rehab. She will have an appointment with Dr. Garcia on 04/18/2019, at 3:50. She will follow up with Darwin Norris on 04/06/2019, at 3:30 pm; Dr. Abdirahman Arciniega on 05/05/2019. She can return to the hospital should she have any problems prior to the time of her followup. Also of note, the patient was given documentation that she had been admitted here in the facility that she requested as she was having some problems staying within her current housing situation. Time spent in discharge activities, including face to face time with patient being >50%, was 31 min. Job ID: [id number] MTDD
== END 2019-04-05 16:30 | disposition home or self-care (01) | DRG 252 ==
LOC: ERS 01:47 → ERHOLD 04:47 → 2NO 16:26
PROVIDERS: ADMIT Internal Medicine; ATTEND Internal Medicine
PROC: 0Y6Q0Z1 Detachment at Left 1st Toe, High, Open Approach (ICD-10-PCS; 2019-03-26)
PROC: 4A023N7 Measurement of Cardiac Sampling and Pressure, Left Heart, Percutaneous Approach (ICD-10-PCS; 2019-03-31)
PROC: B2111ZZ Fluoroscopy of Multiple Coronary Arteries using Low Osmolar Contrast (ICD-10-PCS; 2019-03-31)
PROC: B2151ZZ Fluoroscopy of Left Heart using Low Osmolar Contrast (ICD-10-PCS; 2019-03-31)
PROC: 047N3ZZ Dilation of Left Popliteal Artery, Percutaneous Approach (ICD-10-PCS; principal; 2019-04-01)
PROC: 047L3ZZ Dilation of Left Femoral Artery, Percutaneous Approach (ICD-10-PCS; 2019-04-01)
PROC: 047S34Z Dilation of Left Posterior Tibial Artery with Drug-eluting Intraluminal Device, Percutaneous Approach (ICD-10-PCS; 2019-04-01)
PROC: 0Y6Q0Z1 Detachment at Left 1st Toe, High, Open Approach (ICD-10-PCS; 2019-04-01)
PROC: B41D1ZZ Fluoroscopy of Aorta and Bilateral Lower Extremity Arteries using Low Osmolar Contrast (ICD-10-PCS; 2019-04-01)
DX: I48.0 Paroxysmal atrial fibrillation (principal); I21.4 Non-ST elevation (NSTEMI) myocardial infarction; E11.52 Type 2 diabetes mellitus with diabetic peripheral angiopathy with gangrene; I70.262 Atherosclerosis of native arteries of extremities with gangrene, left leg; E83.42 Hypomagnesemia; E11.40 Type 2 diabetes mellitus with diabetic neuropathy, unspecified; E78.5 Hyperlipidemia, unspecified; I10 Essential (primary) hypertension; I25.10 Atherosclerotic heart disease of native coronary artery without angina pectoris; E87.6 Hypokalemia; F41.9 Anxiety disorder, unspecified; F32.9 Major depressive disorder, single episode, unspecified; M79.7 Fibromyalgia; M19.90 Unspecified osteoarthritis, unspecified site; F17.200 Nicotine dependence, unspecified, uncomplicated; Z79.4 Long term (current) use of insulin; Z79.01 Long term (current) use of anticoagulants; Z90.710 Acquired absence of both cervix and uterus; Z90.49 Acquired absence of other specified parts of digestive tract; Z95.5 Presence of coronary angioplasty implant and graft
CPT/HCPCS: 36415; 36416; 37224; 37227; 70450; 70551; 71045; 76942; 80048; 80053; 81001; 83036; 83735; 84443; 84484; 85025; 85347; 85610; 85730; 88305; 88311; 90471; 90732; 93005; 93010; 93306; 93458; 93798; 93880; 96365; 96366; 99152; 99153; C1725; C1769; C1874; C1887; G0009; J0282; J0360; J1644; J1650; J1885; J2001; J2060; J2250; J2270; J2704; J2720; J3010; J3475; J3490; J7070; Q9967

== ENCOUNTER 2019-04-27 08:51 | Inpatient (IN) | payer SELFPAY ==
[2019-04-27] MEDS ORDERED: Ropivacaine 0.5% HCl/PF (150 MG/30 ML VIAL) ONE (10:44)
[2019-04-27] MEDS ORDERED: Bupivacaine HCl 0.5%/Epinephrine 1:200,000/PF 30 ml Vial ONE (10:44)
[2019-04-27] MEDS ORDERED: Morphine 2 MG/ML SYRINGE ONE (11:37)
[2019-04-27 11:43] LABS: #Basophils 0.1 thou/uL (0.0-0.2); #Eosinphils 0.3 thou/uL (0.0-0.7); #Lymphocytes 3.8 thou/uL (1.20-3.40); #Monocytes 0.4 thou/uL (0.11-0.59); #Neutrophils 6.4 thou/uL (1.40-6.50); %Basophils 0.9 % (0.0-1.0); %Eosinophils 2.6 % (0.0-10.0); %Lymphocytes 34.3 % (21.0-51.0); %Monocytes 3.7 % (0.0-10.0); %Neutrophils 58.5 % (42.0-75.0); Mean Corpuscular HGB CONC 32.7 g/dL (32.0-36.0); Mean Corpuscular Hemoglobin 29.5 pg (27.0-31.0); Mean Corpuscular Volume 90.1 fL (78.0-98.0); Mean Platelet Volume 7.5 fL (7.4-10.4); Platelet Count 375 thou/uL (130-400); RBC Distribution Width 14.8 % (11.5-14.5); Red Blood Cell (RBC) Count 4.42 mill/uL (4.20-5.40)
[2019-04-27 11:49] LABS: Prothrombin Time 13.1 SEC (12.0-14.7)
[2019-04-27] MEDS ORDERED: PROPOFOL 200 MG/20 ML VIAL ONE (11:51)
[2019-04-27] MEDS ORDERED: Ondansetron PF 4 MG/2 ML Vial ONE (11:51)
[2019-04-27] MEDS ORDERED: Lidocaine 1% PF 5 ML VIAL ONE (11:51)
[2019-04-27] MEDS ORDERED: Midazolam HCl 2 mg/2 ml Vial ONE (12:01)
[2019-04-27] MEDS ORDERED: Fentanyl 100 MCG/2 ML VIAL ONE ×2 (12:01→14:33)
[2019-04-27 12:17] LABS: Anion Gap 12 mmol/L (10-20); BUN (Urea Nitrogen) 8 mg/dL (9.8-20.1); Calc. Creatinine Clearance 78 mL/min (70-130); Calcium 9.4 mg/dL (7.8-10.44); Carbon Dioxide 25 mmol/L (23-31); Chloride 103 mmol/L (98-107); Estimated GFR-MDRD Greater than 90; Glucose 195 mg/dL (80-115); Potassium 4.1 mmol/L (3.5-5.1); Sodium 136 mmol/L (136-145)
[2019-04-27] MEDS ORDERED: Propofol 500 MG/50 ML VIAL ONE (14:33)
[2019-04-27] MEDS ORDERED: PACU-Morphine 4MG/ML VIAL SLOW IVP PRN (15:35)
[2019-04-27] MEDS ORDERED: Promethazine HCl 25 MG/ML VIAL IM PRN (15:35)
[2019-04-27] MEDS ORDERED: Promethazine HCl 25 MG/ML VIAL SLOW IVP PRN (15:35)
[2019-04-27] MEDS ORDERED: Dextrose 50% Abboject 50 ML SYRINGE SLOW IVP PRN (15:54)
[2019-04-27] MEDS ORDERED: Ondansetron ODT 4 MG TAB PO PRN (15:54)
[2019-04-27] MEDS ORDERED: Lorazepam 2 MG/ML VIAL SLOW IVP PRN (15:54)
[2019-04-27] MEDS ORDERED: Dextrose 5% in Water 1,000 ML IV PRN (15:54)
[2019-04-27] MEDS ORDERED: Ondansetron PF 4 MG/2 ML Vial IVP PRN (15:54)
[2019-04-27] MEDS ORDERED: traMADol HCl 50 MG TAB PO PRN (16:02)
[2019-04-27] MEDS ORDERED: Acetaminophen 500 MG TAB PO PRN (16:02)
[2019-04-27] MEDS ORDERED: Nitroglycerin 0.4 MG TAB (25 Tab Bottle) SL PRN (16:03)
[2019-04-27] MEDS ORDERED: Calcium Carbonate 500 MG ChewTAB PO PRN (16:03)
[2019-04-27] MEDS ORDERED: Gabapentin 300 MG CAP PO SCH (21:00)
[2019-04-27] MEDS: Gabapentin 400 MG CAP PO SCH (21:04)
[2019-04-27] MEDS: Insulin Regular 300 UNITS/3 ML VIAL SC PRN (21:04)
[2019-04-27] MEDS: Enoxaparin Sodium 40 MG/0.4 ML SYRINGE SC SCH (21:04)
[2019-04-27] MEDS: Atorvastatin Calcium 40 MG TAB PO SCH (21:05)
[2019-04-27] MEDS: Famotidine 20 MG TAB PO SCH (21:05)
[2019-04-27] MEDS: traMADol HCl 50 MG TAB PO PRN (21:08)
[2019-04-27] MEDS: metFORMIN 500 MG TAB PO SCH (21:26)
[2019-04-27 22:12] VITALS: BMI 20.1
[2019-04-27] MEDS ORDERED: Insulin Regular 300 UNITS/3 ML VIAL SC PRN (22:46)
[2019-04-27] MEDS ORDERED: Acetaminophen 650 MG Suppository PR PRN (23:17)
[2019-04-27] MEDS ORDERED: Senokot S 8.6-50 MG TAB PO PRN (23:17)
[2019-04-27] MEDS ORDERED: Acetaminophen 325 MG TAB PO PRN (23:17)
[2019-04-28] MEDS: traMADol HCl 50 MG TAB PO PRN ×2 (01:46→14:47)
[2019-04-28] MEDS: hydrALAZINE 20 MG/ML VIAL SLOW IVP PRN ×2 (03:42→20:17)
[2019-04-28] MEDS: Acetaminophen/Codeine 30-300mg Tablet PO PRN ×4 (04:18→23:49)
--- NOTE | 2019-04-28 04:20 | CON ---
DATE OF CONSULTATION: 04/27/2019 TIME OF ASSESSMENT: 2200 hours. REASON FOR REFERRAL: Medical management. HISTORY OF PRESENT ILLNESS: Ms. Lou is a pleasant 63-year-old woman with a past medical history of diabetes, coronary artery disease, peripheral vascular disease, and hypertension, who is status post a left [id number]-hfct amputation. The patient states she had a foot amputation to begin with due to poor circulation and severe pain involving her foot. She states it provided relief for a brief period of time, and then she began to have severe pain involving her leg. She states this has had a significant impact on her ability to maintain her quality of life. She has been unable to visit family or friends or leave for home due to being in severe pain constantly. She states this has affected her appetite and has caused difficulty sleeping. She wakes up every 2 hours with pain due to her medications wearing off. She states it has been quite sometime since she has been able to get proper rest at home. Since the surgery, the patient states she has had significant improvement in her pain and she has actually been able to sleep for quite some time. She states it is the best she has slept for a long time. She denies having any nausea or vomiting at present. Denies having any chest pain, palpitations, or shortness of breath. No headaches or dizziness. Overall, she feels well and is very hopeful that she will continue to heal well and be able to "live a better life." PAST MEDICAL HISTORY: 1. Coronary artery disease. 2. Hypertension. 3. Type 2 diabetes mellitus. 4. Peripheral arterial disease. 5. Tobacco use. 6. Dyslipidemia. 7. 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 PAST SURGICAL HISTORY: 1. JEWEL SAWYER, left leg. 2. Coronary artery stents. 3. Hysterectomy. 4. Ventral hernia repair. 5. Left [id number] amputation. SOCIAL HISTORY: The patient lives with her family. Reports smoking pack and a half a day for 40 years; recently has started to cut down. Denies any alcohol consumption or illicit drug use. ALLERGIES: NO KNOWN DRUG ALLERGIES. CURRENT MEDICATIONS: 1. Aspirin. 2. Gabapentin. 3. Glipizide. 4. Hydrocodone. 5. Insulin aspart. 6. Metformin. 7. Atorvastatin. 8. Calcium. 9. Clopidogrel. 10. Lisinopril. 11. Metoprolol succinate. 12. . 13. Nitrostat. PHYSICAL EXAMINATION: GENERAL: The patient appears well developed, well nourished, is in no acute distress. VITAL SIGNS: Temperature 98.4, pulse 97, respirations 16, O2 saturation 97% on room air, and blood pressure 164/51. HEENT: Normocephalic and atraumatic. Pupils are equal, round, and reactive to light. Sclerae without icterus. Oropharynx is clear. NECK: Supple. No lymphadenopathy. LUNGS: Clear to auscultation bilaterally. No wheezes, rales, or rhonchi. CARDIAC: Regular rate and rhythm. ABDOMEN: Soft, nontender, nondistended. Normoactive bowel sounds present. EXTREMITIES: Dressing in place on the left stump. Right leg without any lower extremity swelling, pain, or edema. Warm to touch. Peripheral pulses present. NEUROLOGIC: Alert and oriented x3. SKIN: Without rash or jaundice. She does have significant dryness involving the right leg with flaking of the skin. LABORATORY DATA: Notable for white blood count of 11, hemoglobin 13, hematocrit 39.8, and platelets 375. Sodium 136, potassium 4.1, BUN 8, creatinine 0.7, GFR greater than 90, glucose 185. IMAGING DATA: None. IMPRESSION AND PLAN: Ms. Lou is a very pleasant 63-year-old woman status post left [id number] amputation, who has been referred for medical management of her comorbidities, which include the followin. Hypertension: We will resume home medications and monitor blood pressure. 2. Diabetes mellitus, insulin dependent. We will hold metformin. We will initiate insulin sliding scale. Home medications to be held until confirmed. 3. Peripheral arterial disease, long-standing and pain was severe/persistent. She is significantly better after surgery. She did have a nerve block and was given tramadol. The patient states she has no pain at present. She is found resting comfortably and states she has not been able to sleep this well for a long time. Continue to monitor pain. Management as per Dr. Garcia. 4. Gastrointestinal prophylaxis with famotidine. 5. Deep venous thrombosis prophylaxis. No pharmacologic anticoagulation given recent surgery. 6. Code status, full. Her surrogate decision maker is her daughter, Lawrence Hernandez. The patient's case was discussed with the attending, who agrees with plan of care as described above. Thank you for this consultation. We will continue to follow the patient with you. Job ID: [id number]
[2019-04-28 04:21] LABS: #Basophils 0.1 thou/uL (0.0-0.2); #Eosinphils 0.3 thou/uL (0.0-0.7); #Lymphocytes 3.1 thou/uL (1.20-3.40); #Monocytes 0.7 thou/uL (0.11-0.59); #Neutrophils 8.6 thou/uL (1.40-6.50); %Basophils 1.1 % (0.0-1.0); %Eosinophils 2.3 % (0.0-10.0); %Lymphocytes 24.4 % (21.0-51.0); %Monocytes 5.1 % (0.0-10.0); %Neutrophils 67.1 % (42.0-75.0); Hemoglobin 12.9 g/dL (12.0-16.0); Mean Corpuscular HGB CONC 32.4 g/dL (32.0-36.0); Mean Corpuscular Hemoglobin 29.8 pg (27.0-31.0); Mean Corpuscular Volume 91.8 fL (78.0-98.0); Mean Platelet Volume 7.6 fL (7.4-10.4); Platelet Count 359 thou/uL (130-400); RBC Distribution Width 14.8 % (11.5-14.5); Red Blood Cell (RBC) Count 4.35 mill/uL (4.20-5.40); White Blood Cell (WBC) Count 12.7 thou/uL (4.8-10.8)
[2019-04-28] MEDS: Lisinopril 20 MG TAB PO SCH (04:24)
[2019-04-28 04:40] LABS: Anion Gap 14 mmol/L (10-20); BUN (Urea Nitrogen) 8 mg/dL (9.8-20.1); Calc. Creatinine Clearance 78 mL/min (70-130); Calcium 9.2 mg/dL (7.8-10.44); Carbon Dioxide 24 mmol/L (23-31); Chloride 103 mmol/L (98-107); Estimated GFR-MDRD Greater than 90; Glucose 104 mg/dL (80-115); Potassium 3.8 mmol/L (3.5-5.1); Sodium 137 mmol/L (136-145)
[2019-04-28] MEDS: Insulin Regular 300 UNITS/3 ML VIAL SC PRN (06:17)
[2019-04-28] MEDS: glipiZIDE 5 MG TAB PO SCH (06:32)
[2019-04-28] MEDS: Triple Antibiotic Oint 1 GM Packet TOP SCH (09:28)
[2019-04-28] MEDS: Aspirin 81 mg Enteric Coated Tablet PO SCH (09:28)
[2019-04-28] MEDS: Gabapentin 400 MG CAP PO SCH ×3 (09:29→20:17)
[2019-04-28] MEDS: Famotidine 20 MG TAB PO SCH ×2 (09:33→20:17)
[2019-04-28] MEDS: Clopidogrel Bisulfate 75 MG TAB PO SCH (09:34)
[2019-04-28] MEDS: metFORMIN 500 MG TAB PO SCH ×2 (09:34→18:05)
--- NOTE | 2019-04-28 10:15 | OP ---
DATE OF PROCEDURE: 04/27/2019 PREOPERATIVE DIAGNOSES: 1. Arteriosclerotic disease, left leg. 2. Peripheral arterial disease, failed interventional disease not amenable to further interventional revascularization. POSTOPERATIVE DIAGNOSES: 1. Arteriosclerotic disease, left leg. 2. Peripheral arterial disease, failed interventional disease not amenable to further interventional revascularization. PROCEDURE PERFORMED: Left below-knee amputation. ANESTHESIA: Regional TIVA. DESCRIPTION OF PROCEDURE: The patient was taken to the operating room, where under regional anesthesia and intravenous sedation, left lower extremity was prepared with ChloraPrep and draped in routine fashion. Incision was made for BKA with a long posterior flap. Carried down through skin and subcutaneous tissue, fascia divided in the muscular bundles with cautery and vascular bundles between clamps, and ligated with 2-0 silk ties. Tibia cleared off periosteum proximally, transected with a Gigli saw and bevelling the anterior edge cephalad. I was able to cut about an inch above the cut edge of the tibia. Wound irrigated, good hemostasis obtained. Fascia approximated with 2-0 Vicryl and skin with mattie. The patient tolerated the procedure well. Job ID: [id number]
--- NOTE | 2019-04-28 17:57 | PRG ---
DATE OF SERVICE: 04/28/2019 SUBJECTIVE: Pavithra Lou is doing well today. She is having minimal pain except for when she hit her stump on the bed railing. We are hoping to send her to rehab tomorrow. OBJECTIVE: VITAL SIGNS: Temperature 98.7 degrees, heart rate 78, blood pressure 185/85. White count 12 and hemoglobin 12. Basic metabolic profile normal. LUNGS: Clear to auscultation. CARDIAC: Regular rate and rhythm without murmur or gallop. ABDOMEN: Soft, nontender. ASSESSMENT AND PLAN: The patient is doing well, status post BKA. We will plan removal of her dressing tomorrow. Begin washing the stump with soap and water daily and she go to rehab for mobility and transfers and ambulation. Job ID: [id number]
[2019-04-28] MEDS: Enoxaparin Sodium 40 MG/0.4 ML SYRINGE SC SCH (20:17)
[2019-04-28] MEDS: Atorvastatin Calcium 40 MG TAB PO SCH (20:17)
[2019-04-28] MEDS ORDERED: FLU VACC QS2019-20(6MOS UP)/PF 60 MCG/0.5 ML SYRINGE IM ONE (21:00)
--- NOTE | 2019-04-28 23:19 | PDOC.HOSPP ---
- Subjective Encounter Date: 04/28/19 Encounter Time: 19:00 Subjective: Patient seen and examined for med mngt. No new complaints. No overnight events - Objective Vital Signs & Weight: Vital Signs (12 hours) Temp Pulse Resp BP BP Pulse Ox 04/28/19 20:40 168/84 H 04/28/19 20:17 83 171/82 H 04/28/19 19:11 98.7 F 83 16 171/82 H 95 04/28/19 15:27 98.7 F 78 20 185/95 H 97 Weight Weight 121 lb I&O: 04/27/19 04/28/19 04/29/19 06:59 06:59 06:59 Intake Total 240 Output Total 900 Balance -660 Result Diagrams: 04/28/19 04:08 04/28/19 04:08 Additional Labs: Accuchecks 04/28/19 04/28/19 04/28/19 15:34 11:37 05:41 POC Glucose 97 126 H 172 H Hospitalist ROS - Review of Systems Respiratory: denies: cough, dry, shortness of breath, hemoptysis, SOB with excertion, pleuritic pain, sputum, wheezing, other Cardiovascular: denies: chest pain, palpitations, orthopnea, paroxysmal noc. dyspnea, edema, light headedness, other - Medication Medications: Active Medications Generic Name Dose Route Start Last Admin Trade Name Freq PRN Reason Stop Dose Admin Acetaminophen/Codeine Phosphate 1 tab 04/28/19 01:44 04/28/19 18:06 Tylenol #3 PO 1 tab Q4H PRN Administration Moderate Pain (4-6) Aspirin 81 mg 04/28/19 09:00 04/28/19 09:28 Ecotrin PO 81 mg DAILY ROBERT Administration Atorvastatin Calcium 40 mg 04/27/19 21:00 04/28/19 20:17 Lipitor PO 40 mg HS ROBERT Administration Clopidogrel Bisulfate 75 mg 04/28/19 09:00 04/28/19 09:34 Plavix PO 75 mg DAILY ROBERT Administration Enoxaparin Sodium 40 mg 04/27/19 21:00 04/28/19 20:17 Lovenox SC 40 mg 2100 ROBERT Administration Famotidine 20 mg 04/27/19 21:00 04/28/19 20:17 Pepcid PO 20 mg BID ROBERT Administration Gabapentin 1,200 mg 04/27/19 21:00 04/28/19 20:17 Neurontin PO 1,200 mg TID ROBERT Administration Glipizide 5 mg 04/28/19 07:30 04/28/19 06:32 Glucotrol PO 5 mg DAILY-AC ROBERT Administration Hydralazine HCl 10 mg 04/27/19 15:54 04/28/19 20:17 Apresoline SLOW IVP 10 mg Q4H PRN Administration SBP > 170 or DBP > 100 Insulin Human Regular 0 units 04/27/19 15:54 04/28/19 06:17 Humulin R SC 2 unit .MODERATE SLIDING SC PRN Administration Moderate Correctional Scale Lisinopril 40 mg 04/28/19 09:00 04/28/19 04:24 Zestril PO 40 mg DAILY ROBERT Administration Lorazepam 2 mg 04/27/19 15:54 04/28/19 01:47 Ativan SLOW IVP 2 mg Q6H PRN Administration Anxiety/Agitation Metformin HCl 1,000 mg 04/27/19 17:00 04/28/19 18:05 Glucophage PO 1,000 mg BID-WM ROBERT Administration Metoprolol Succinate 50 mg 04/28/19 09:00 04/28/19 09:33 Toprol Xl PO 50 mg DAILY [facility] Administration Neomycin/Polymyxin/Bacitracin 1 gm 04/28/19 09:00 04/28/19 09:28 Triple Antibiotic TOP Not Given DAILY [facility] Sodium Chloride 10 ml 04/27/19 15:54 04/28/19 20:18 Flush - Normal Saline IVF 10 ml PRN PRN Administration Saline Flush Tramadol HCl 100 mg 04/27/19 16:02 04/28/19 14:47 Ultram PO 100 mg Q6H PRN Administration Severe Pain (7-10) - Exam General Appearance: NAD Heart: RRR, no rubs Respiratory: CTAB, no rales, no ronchi Gastrointestinal: soft, non-tender, normal bowel sounds Extremities: no edema Hosp A/P - Plan DVT proph w/lovenox HTN DM2 CAD PVD Tobacco dep PLAN: Cont sliding scale with Metformin/Glipizide Cont Lisinopril/Toprol On ASA/Plavix Counselled to quit smoking Will follow
[2019-04-29] MEDS: Acetaminophen/Codeine 30-300mg Tablet PO PRN ×2 (06:11→09:52)
[2019-04-29] MEDS: traMADol HCl 50 MG TAB PO PRN (07:09)
[2019-04-29] MEDS: glipiZIDE 5 MG TAB PO SCH (07:09)
[2019-04-29] MEDS: Lisinopril 20 MG TAB PO SCH (08:47)
[2019-04-29] MEDS: Gabapentin 400 MG CAP PO SCH ×3 (08:48→21:21)
[2019-04-29] MEDS: Aspirin 81 mg Enteric Coated Tablet PO SCH (08:48)
[2019-04-29] MEDS: Clopidogrel Bisulfate 75 MG TAB PO SCH (08:48)
[2019-04-29] MEDS: metFORMIN 500 MG TAB PO SCH ×2 (08:48→18:04)
[2019-04-29] MEDS: Famotidine 20 MG TAB PO SCH ×2 (08:48→21:21)
[2019-04-29] MEDS: Triple Antibiotic Oint 1 GM Packet TOP SCH (08:48)
[2019-04-29] MEDS ORDERED: HYDROcodone/Acetaminophen 10/325 mg Tablet PO PRN (10:05)
--- NOTE | 2019-04-29 10:53 | PRG ---
DATE OF SERVICE: 04/29/2019 SUBJECTIVE: Pavithra Lou is doing well. She is today status post left BKA. Her wound looks good. She was complaining of some pain. She was taking [place] 10 preoperatively. We will order that as she states Ultram is ineffective. OBJECTIVE: VITAL SIGNS: 98.7, 81, 54/80. LUNGS: Clear to auscultation. CARDIAC: Regular rate and rhythm without murmur or gallop. ABDOMEN: Soft, nontender. EXTREMITIES: Left BK stump well healed. LABORATORY DATA: No laboratories today. Yesterday, hemoglobin 12.9. Basic metabolic profile normal. ASSESSMENT AND PLAN: Doing well. Patient to be transferred anytime to [facility]. Physical Therapy is working with her on transfers. Unfortunately, she lost her insurance prior to this operation and so Case workers working on [facility] for transition to home. For discharge, she will need a wheelchair, shower chair, bedside commode, instruction on transfers. This weekend, Dr. Luna is covering. I will return Thursday. Job ID: [id number]
[2019-04-29] MEDS: HYDROcodone/Acetaminophen 10/325 mg Tablet PO PRN ×3 (11:49→22:45)
[2019-04-29] MEDS: Atorvastatin Calcium 40 MG TAB PO SCH (21:22)
[2019-04-29] MEDS: Enoxaparin Sodium 40 MG/0.4 ML SYRINGE SC SCH (21:22)
--- NOTE | 2019-04-29 23:59 | PDOC.HOSPP ---
- Subjective Encounter Date: 04/29/19 Encounter Time: 09:30 Subjective: Patient seen and examined for med mngt. No CP or SOB. Pain over the surgical site. No other complaints. No overnight events - Objective Vital Signs & Weight: Vital Signs (12 hours) Temp Pulse Resp BP Pulse Ox 04/29/19 23:32 98.6 F 86 18 176/76 H 97 04/29/19 19:43 98.7 F 67 16 124/67 99 04/29/19 16:00 98.3 F 59 L 14 137/76 96 Weight Weight 121 lb I&O: 04/28/19 04/29/19 04/30/19 06:59 06:59 06:59 Intake Total 240 600 Output Total 900 4 Balance -660 596 Result Diagrams: 04/28/19 04:08 04/28/19 04:08 Additional Labs: Accuchecks 04/29/19 04/29/19 04/29/19 20:59 16:14 11:44 POC Glucose 143 H 129 H 127 H 04/29/19 05:39 POC Glucose 117 H Hospitalist ROS - Review of Systems Respiratory: denies: cough, dry, shortness of breath, hemoptysis, SOB with excertion, pleuritic pain, sputum, wheezing, other Cardiovascular: denies: chest pain, palpitations, orthopnea, paroxysmal noc. dyspnea, edema, light headedness, other Gastrointestinal: denies: nausea, vomiting, abdominal pain, diarrhea, constipation, melena, hematochezia, other - Medication Medications: Active Medications Generic Name Dose Route Start Last Admin Trade Name Freq PRN Reason Stop Dose Admin Acetaminophen 650 mg 04/27/19 23:17 04/29/19 07:09 Tylenol PO 650 mg Q4H PRN Administration Headache/Fever/Mild Pain (1-3) Acetaminophen/Codeine Phosphate 1 tab 04/28/19 01:44 04/29/19 09:52 Tylenol #3 PO 1 tab Q4H PRN Administration Moderate Pain (4-6) Hydrocodone Bitart/Acetaminophen 2 tab 04/29/19 10:05 04/29/19 22:45 [place] 10/325 PO 2 tab Q4H PRN Administration Moderate to Severe Pain (6-10) Aspirin 81 mg 04/28/19 09:00 04/29/19 08:48 Ecotrin PO 81 mg DAILY ROBERT Administration Atorvastatin Calcium 40 mg 04/27/19 21:00 04/29/19 21:22 Lipitor PO 40 mg HS ROBERT Administration Clopidogrel Bisulfate 75 mg 04/28/19 09:00 04/29/19 08:48 Plavix PO 75 mg DAILY ROBERT Administration Enoxaparin Sodium 40 mg 04/27/19 21:00 04/29/19 21:22 Lovenox SC 40 mg 2100 ROBERT Administration Famotidine 20 mg 04/27/19 21:00 04/29/19 21:21 Pepcid PO 20 mg BID ROBERT Administration Gabapentin 1,200 mg 04/27/19 21:00 04/29/19 21:21 Neurontin PO 1,200 mg TID ROBERT Administration Glipizide 5 mg 04/28/19 07:30 04/29/19 07:09 Glucotrol PO 5 mg DAILY-AC ROBERT Administration Hydralazine HCl 10 mg 04/27/19 15:54 04/28/19 20:17 Apresoline SLOW IVP 10 mg Q4H PRN Administration SBP > 170 or DBP > 100 Insulin Human Regular 0 units 04/27/19 15:54 04/28/19 06:17 Humulin R SC 2 unit .MODERATE SLIDING SC PRN Administration Moderate Correctional Scale Lisinopril 40 mg 04/28/19 09:00 04/29/19 08:47 Zestril PO 40 mg DAILY ROBERT Administration Lorazepam 2 mg 04/27/19 15:54 04/28/19 01:47 Ativan SLOW IVP 2 mg Q6H PRN Administration Anxiety/Agitation Metformin HCl 1,000 mg 04/27/19 17:00 04/29/19 18:04 Glucophage PO 1,000 mg BID-WM ROBERT Administration Metoprolol Succinate 50 mg 04/28/19 09:00 04/29/19 08:48 Toprol Xl PO 50 mg DAILY ROBERT Administration Neomycin/Polymyxin/Bacitracin 1 gm 04/28/19 09:00 04/29/19 08:48 Triple Antibiotic TOP 1 gm DAILY ROBERT Administration Sodium Chloride 10 ml 04/27/19 15:54 04/28/19 20:18 Flush - Normal Saline IVF 10 ml PRN PRN Administration Saline Flush Tramadol HCl 100 mg 04/27/19 16:02 04/29/19 07:09 Ultram PO 100 mg Q6H PRN Administration Severe Pain (7-10) - Exam General Appearance: NAD Neck: supple, no JVD Heart: RRR, no gallops, no rubs Respiratory: CTAB, no wheezes, no ronchi Gastrointestinal: soft, non-tender, non-distended, normal bowel sounds Extremities: no edema Hosp A/P - Plan DVT proph w/SCDs HTN - on Lisinopril/Toprol DM - on 2Metformin/Glipizide CAD PVD Tobacco dep - counselled PLAN: Cont sliding scale On ASA/Plavix Will follow PRN
[2019-04-30] MEDS: hydrALAZINE 20 MG/ML VIAL SLOW IVP PRN (00:55)
[2019-04-30] MEDS: traMADol HCl 50 MG TAB PO PRN (01:00)
--- NOTE | 2019-04-30 02:58 | PRG ---
DATE OF SERVICE: 04/30/2019 SUBJECTIVE: The patient is currently on the surgical floor. She is status post a left BKA performed by Dr. Garcia. We are covering for the weekend. The patient states that she is currently tolerating a diet. Her pain is controlled. She started working with Physical and Occupational Therapy. PHYSICAL EXAMINATION: VITAL SIGNS: Stable. The patient is afebrile. GENERAL: The patient is resting comfortably in bed. She just returned to bed from using bedside commode. She is awake, alert, conversant, appropriate. She appears in no distress. EXTREMITIES: Her stump dressing is clean, dry, and intact with dissection of one tiny area of blood noted. Nurses marked it and will keep an eye on this. ASSESSMENT: Status post left below-knee amputation. PLAN: Plan will be to continue physical and occupational therapy and await placement decision. Job ID: [id number]
[2019-04-30] MEDS: glipiZIDE 5 MG TAB PO SCH (06:37)
[2019-04-30] MEDS: HYDROcodone/Acetaminophen 10/325 mg Tablet PO PRN ×2 (06:38→13:38)
[2019-04-30] MEDS: Clopidogrel Bisulfate 75 MG TAB PO SCH (08:48)
[2019-04-30] MEDS: Lisinopril 20 MG TAB PO SCH (08:48)
[2019-04-30] MEDS: Triple Antibiotic Oint 1 GM Packet TOP SCH (08:48)
[2019-04-30] MEDS: Famotidine 20 MG TAB PO SCH (08:49)
[2019-04-30] MEDS: metFORMIN 500 MG TAB PO SCH (08:49)
[2019-04-30] MEDS: Aspirin 81 mg Enteric Coated Tablet PO SCH (08:49)
[2019-04-30] MEDS: Gabapentin 400 MG CAP PO SCH ×2 (08:49→13:38)
[2019-04-30 11:23] VITALS: BP 144/70; TEMP 98.3
--- NOTE | 2019-05-02 11:45 | DIS ---
DATE OF ADMISSION: 04/27/2019 DATE OF DISCHARGE: 04/30/2019 CONSULTING PHYSICIAN: Jey Garcia MD PROCEDURE: Left below-knee amputation. HOSPITAL COURSE: Ms. Lou is a 63-year-old female with a history of diabetes type 2, coronary artery disease with stent placement, hypertension, tobacco use, peripheral artery disease, and ischemic gangrene of the left foot requiring amputation. She was admitted for left BKA, postop the patient reported that she has been doing good. Pain is well controlled. The patient is able to ambulate by herself using a walker and her vital signs have been stable. She tolerated with her regular diet and the patient reports she is living at home with her granddaughter and granddaughter will be able to take care of her at home. PHYSICAL EXAMINATION: GENERAL: The patient is lying down in bed with no acute distress. VITAL SIGNS: Temperature 98, heart rate 65, respiratory rate 16, O2 sats 96 on room air, and blood pressure 144/70. LUNGS: Clear bilaterally. HEART: Regular rate and rhythm. ABDOMEN: Soft and nondistended. EXTREMITIES: Neurovascularly intact x4. Left below-knee amputation stump dressing is clean, dry, intact. DISCHARGE DISPOSITION: Home. DISCHARGE CONDITION: Fair. DISCHARGE INSTRUCTIONS: The patient is to take medication as directed. The patient is to see Dr. Garcia in 2 to 3 weeks. The patient is to have a diabetic diet and the patient is to use walker and wheelchair. ACTIVITY: As tolerated. Job ID: [id number] MTDD
== END 2019-04-30 15:24 | disposition home or self-care (01) | DRG 240 ==
LOC: SDC 08:51 → SURG A 20:27
PROVIDERS: ADMIT Specialist; ATTEND Specialist
PROC: 0Y6J0Z1 Detachment at Left Lower Leg, High, Open Approach (ICD-10-PCS; principal; 2019-04-27)
PROC: 3E02340 Introduction of Influenza Vaccine into Muscle, Percutaneous Approach (ICD-10-PCS; 2019-04-28)
DX: E11.52 Type 2 diabetes mellitus with diabetic peripheral angiopathy with gangrene (principal); I70.262 Atherosclerosis of native arteries of extremities with gangrene, left leg; I25.10 Atherosclerotic heart disease of native coronary artery without angina pectoris; I10 Essential (primary) hypertension; E78.5 Hyperlipidemia, unspecified; M19.90 Unspecified osteoarthritis, unspecified site; F17.210 Nicotine dependence, cigarettes, uncomplicated; Z90.710 Acquired absence of both cervix and uterus; Z95.5 Presence of coronary angioplasty implant and graft; Z79.899 Other long term (current) drug therapy; Z79.82 Long term (current) use of aspirin; Z79.4 Long term (current) use of insulin; Z23 Encounter for immunization; Z79.02 Long term (current) use of antithrombotics/antiplatelets
CPT/HCPCS: 36415; 36416; 80048; 85025; 85610; 88307; 90471; 90686; G0008; J0360; J0690; J1650; J1815; J2060; J2250; J2270; J2704; J3010; L8440

== ENCOUNTER 2019-08-21 09:34 | Emergency (ER) | payer SELFPAY ==
--- NOTE | 2019-08-21 10:34 | RAD ---
EXAM: 4 views of the left knee HISTORY: Knee pain COMPARISON: None FINDINGS: A large knee effusion knee effusion is seen. Diffuse osteopenia is seen. The patient is sta tus post [id number] amputation. There is no evidence of acute fracture or dislocation. No significant degenerative changes are seen. Mild diffuse soft tissue swelling is present. Vascular tri cifications are seen. IMPRESSION: No evidence of acute osseous abnormality.
[2019-08-21] MEDS ORDERED: Acetaminophen 500 MG TAB ONE (11:04)
[2019-08-21] MEDS ORDERED: Ondansetron PF 4 MG/2 ML Vial ONE (11:04)
[2019-08-21] MEDS ORDERED: Morphine 4 MG/ML VIAL ONE ×2 (11:04→11:05)
[2019-08-21] MEDS ORDERED: Adacel (T-DAP) 0.5 ML SYRINGE ONE (11:05)
[2019-08-21 11:11] LABS: Hemoglobin 16.6 g/dL (12.0-16.0); Mean Corpuscular HGB CONC 32.4 g/dL (32.0-36.0); Mean Corpuscular Hemoglobin 30.2 pg (27.0-31.0); Mean Corpuscular Volume 93.2 fL (78.0-98.0); Mean Platelet Volume 9.5 fL (7.4-10.4); Platelet Count 235 thou/uL (130-400); RBC Distribution Width 14.8 % (11.5-14.5); Red Blood Cell (RBC) Count 5.48 mill/uL (4.20-5.40); White Blood Cell (WBC) Count 15.8 thou/uL (4.8-10.8)
[2019-08-21 11:30] LABS: Burr Cells SLIGHT = 2-5 cells (100X) (0-1/hpf); Eosinophils 3 % (0-10); Hypochromia SLIGHT = 6-15 cells (100X) (0-5/hpf); Lymphocytes 29 % (21-51); MDiff Complete? YES; Monocytes 6 % (0-10); Neutrophil 62 % (42-75); Platelet Morphology Comment Appears Adequate
[2019-08-21 12:27] LABS: ALT (SGPT) 10 U/L (8-55); AST (SGOT) 18 U/L (5-34); Albumin 3.9 g/dL (3.4-4.8); Alkaline Phosphatase 111 U/L (40-110); Anion Gap 16 mmol/L (10-20); BUN (Urea Nitrogen) 5 mg/dL (9.8-20.1); Bilirubin, Total 0.5 mg/dL (0.2-1.2); Calc. Creatinine Clearance 0 mL/min (70-130); Calcium 9.5 mg/dL (7.8-10.44); Carbon Dioxide 17 mmol/L (23-31); Chloride 109 mmol/L (98-107); Estimated GFR-MDRD Greater than 90; Globulin 3.5 g/dL (2.4-3.5); Glucose 247 mg/dL (80-115); Lipase 12 U/L (8-78); Protein, Total 7.4 g/dL (6.0-8.3); Sodium 137 mmol/L (136-145)
--- NOTE | 2019-08-21 13:50 | CT ---
CT chest, abdomen, and pelvis with IV contrast: Multiple axial tomograms obtained through the chest, abdomen, and pelvis [facility]. INDICATIONS:Fall with injury to chest and abdomen. CT CHEST: Lung friedman are clear. No evidence of pneumothorax, effusion, contusion, or infiltrate. Mediastinum is unremarkable. No evidence of hematoma. Thoracic aorta is unremarkable. No adenopathy. Heart is unremarkable. Review of the bony thorax shows nondisplaced fractures posterior lateral right eighth and ninth ribs. Thoracic vertebra maintain height and alignment with degenerative changes noted. Soft tissues of the thorax appear unremarkable. IMPRESSION: 1. Fractures posterior lateral right eighth and ninth ribs. CT abdomen and pelvis: Comparison made to prior abdominal CT from 2004. Images of liver again shows a large hepatic hemangioma involving the left lobe of liver measuring up to 8 cm. Peripheral nodular enhancement is seen consistent with hemangioma. This was present on the prior study. A second smaller hemangioma in the upper right lobe of liver measuring approximately 1.5 cm is again noted. Spleen unremarkable. Pancreas and adrenal glands appear unremarkable. Kidneys, ureters, and urinary bladder appear unremarkable. Small and large bowel appear unremarkable with no evidence of injury. Mesentery unremarkable with no evidence of injury or hematoma. No evidence of free fluid or blood seen within the abdomen or pelvis. No evidence for retroperitoneal hematoma. Pelvic structures unremarkable with no evidence of hematoma. Abdominal aorta shows atherosclerotic calcification. No aneurysm. Bony pelvis appears intact. Lumbar spine appears intact. Subcutaneous tissues appear unremarkable. IMPRESSION: 1.No acute intra-abdominal injury CT thoracic and lumbar spine: Sagittal and coronal images of thoracic and lumbar spine obtained. Thoracic vertebra maintain normal height and alignment. No evidence of thoracic spine fracture. Lumbar vertebra maintain normal height and alignment. No evidence of lumbar spine fracture. IMPRESSION: 1.No evidence of thoracic or lumbar spine fracture.
[2019-08-21] MEDS ORDERED: Iopamidol-370 76% 500 ML 1 ML ONE (13:53)
== END 2019-08-21 14:50 | disposition home or self-care (01) ==
LOC: ERS 09:34
DX: S22.41XA Multiple fractures of ribs, right side, initial encounter for closed fracture (principal); D18.03 Hemangioma of intra-abdominal structures; I25.10 Atherosclerotic heart disease of native coronary artery without angina pectoris; E11.9 Type 2 diabetes mellitus without complications; I25.2 Old myocardial infarction; I10 Essential (primary) hypertension; G43.909 Migraine, unspecified, not intractable, without status migrainosus; F41.9 Anxiety disorder, unspecified; F17.210 Nicotine dependence, cigarettes, uncomplicated; Z79.4 Long term (current) use of insulin; Z79.82 Long term (current) use of aspirin; W18.09XA Striking against other object with subsequent fall, initial encounter
CPT/HCPCS: 36416; 71260; 74177; 80053; 83690; 85025; 90471; 90715; 93005; 96361; 96374; 96375; J2270; J2405; Q9967

== ENCOUNTER 2021-09-12 13:09 | Outpatient (CLI) | payer MEDICARE | END 2021-09-12 13:10 | disposition home or self-care (01) | LOC: BICRAD 13:09 | PROVIDERS: ATTEND Physician Assistant Medical | DX: K59.00 Constipation, unspecified (principal); R63.4 Abnormal weight loss; D64.9 Anemia, unspecified | CPT/HCPCS: 74019 ==

== ENCOUNTER 2022-04-24 10:20 | Outpatient (CLI) | payer MEDICARE, OTHER | END 2022-04-24 10:21 | disposition home or self-care (01) | LOC: BICMAMMO 10:20 | PROVIDERS: ATTEND Family Medicine | DX: Z12.31 Encounter for screening mammogram for malignant neoplasm of breast (principal) | CPT/HCPCS: 77063; 77067 ==

== ENCOUNTER 2024-01-25 10:03 | Outpatient (CLI) | payer OTHER | END 2024-01-25 10:04 | disposition home or self-care (01) | LOC: BICCT 10:03 | PROVIDERS: ATTEND Family Medicine | DX: Z12.2 Encounter for screening for malignant neoplasm of respiratory organs (principal); Z13.6 Encounter for screening for cardiovascular disorders; F17.210 Nicotine dependence, cigarettes, uncomplicated | CPT/HCPCS: 71271; 76775 ==

== ENCOUNTER 2025-03-15 15:24 | Outpatient (CLI) | payer OTHER | END 2025-03-15 15:25 | disposition home or self-care (01) | LOC: BICMAMMO 15:24 | PROVIDERS: ATTEND Family Medicine | DX: Z12.31 Encounter for screening mammogram for malignant neoplasm of breast (principal) | CPT/HCPCS: 77063; 77067 ==

== ENCOUNTER 2025-06-20 13:37 | Outpatient (CLI) | payer OTHER | END 2025-06-20 13:38 | disposition home or self-care (01) | LOC: BICRAD 13:37 | PROVIDERS: ATTEND Family Medicine | DX: M25.551 Pain in right hip (principal); M25.552 Pain in left hip; M16.0 Bilateral primary osteoarthritis of hip ==